=== PATIENT | female | born 1975 | race Caucasian/White ===

== ENCOUNTER 2023-05-24 08:46 | Emergency (ER) | payer MEDICAID, OTHER ==
[~2023-05-24] VITALS: Ht 170.2 cm; Wt 105.8 kg
[~2023-05-24 08:46] MED LIST: ALPR0.5T; DIVA250T4; LORA-205; QUET100T38
[2023-05-24 09:50] LABS: Basophils # (auto) 0.1 10 ^3/uL (0-0.2); Basophils % (auto) 0.7 % (0.0-2.0); Chloride 105 mmol/L (98-107); Eosinophils # (auto) 0.4 10 ^3/uL (0-0.8); Eosinophils % (auto) 2.7 % (0.0-7.0); Hematocrit 46.9 % (36.0-46.0); Lymphocytes # (auto) 3.1 10 ^3/uL (0.4-5.4); Lymphocytes % (auto) 20.1 % (10.0-50.0); Mean Corpuscular Hemoglobin 30.7 pg (28.0-32.0); Mean Corpuscular Hgb Conc. 34.2 g/dL (32.0-36.0); Mean Corpuscular Volume 89.8 fL (80.0-100.0); Monocytes # (auto) 0.9 10 ^3/uL (0-1.3); Monocytes % (auto) 5.9 % (0.0-12.0); Neutrophils % (auto) 70.6 % (37.0-80.0); Nucleated Red Blood Cells % 0.1 %; Potassium 4.2 mmol/L (3.5-5.1); Red Blood Cells 5.22 10^6/uL (4.0-5.20); Red Cell Distribution Width 13.7 % (11.8-14.3); Sodium 139 mmol/L (136-145); White Blood Cell 15.5 10^3/uL (4.4-10.8)
[2023-05-24 09:51] LABS: Anion Gap 10 (5-15); Carbon Dioxide 24 mmol/L (20-30)
[2023-05-24 09:52] LABS: Calcium 9.5 mg/dL (8.5-10.1)
[2023-05-24 09:56] LABS: Blood Urea Nitrogen 14 mg/dL (9-23); Glucose 223 mg/dL (74-106)
[2023-05-24 11:37] LABS: Alkaline Phosphatase 82 U/L (46-116)
[2023-05-24 11:39] LABS: Alanine Aminotransferase 30 U/L (7-40); Albumin 4.6 g/dL (3.2-4.8); Aspartate Aminotransferase 13 U/L (13-40); Bilirubin, Total 0.5 mg/dL (0.2-1.0); Total Protein 6.8 g/dL (5.7-8.2)
[2023-05-24] MEDS ORDERED: MECL1TAB42 PO (14:27)
[2023-05-24] MEDS ORDERED: ZOFR4T PO (14:27)
[2023-05-24 14:30] VITALS: BP 168/95; PULSE 75; RESP 14; TEMP 97.4; O2SAT 94
[2023-05-24] MEDS ORDERED: MECLIZINE HCL 25 MG TAB PO ONE (14:45)
[2023-05-24] MEDS ORDERED: ONDANSETRON ODT 4 MG TAB PO ONE (14:45)
== END 2023-05-24 14:55 | disposition home or self-care (01) ==
LOC: ER 08:46
DX: R42 Dizziness and giddiness (principal); R10.2 Pelvic and perineal pain; E11.9 Type 2 diabetes mellitus without complications; I10 Essential (primary) hypertension; F12.10 Cannabis abuse, uncomplicated; Z90.49 Acquired absence of other specified parts of digestive tract
CPT/HCPCS: 36415; 70450; 80053; 84484; 84702; 85025; 93005; 99284; J8597; Q0162

== ENCOUNTER 2024-06-03 10:06 | Inpatient (IN) | payer MEDICAID ==
[~2024-06-03] VITALS: Ht 170.2 cm; Wt 115.5 kg
[~2024-06-03 10:06] MED LIST changes: +DIVA-139; -DIVA250T4; +MECL1TAB42 PO; +ZOFR4T PO
--- NOTE | 2024-06-03 10:43 | ED.PDOC ---
History of Present Illness HPI Comments 48 year old female presents to the ED with chief complaint of flu-like illness and chest pain. Patient reports that she has been experiencing chest pain with associated tachycardia since last night along with left sided facial pain and swelling, tailbone pain, fever, constipation, and abdominal pressure for the past 5 days. Patient relays that 5 days ago she had fallen onto her face and when getting up fell on her bottom, believing she may have injured her tailbone and teeth. Patient states she took some antibiotics she was prescribed before due to noticing left sided facial swelling and pain, relieving it slightly, but is still present. Patient notes she had a recent appointment with her pain management doctor 5 days ago where she was noted to have high blood pressure and a rapid heart rate. Patient denies any N/V/D, cough, SOB, dizziness, chills, or weakness. Chief Complaint: Chest Pain Time Seen by MD: 10:36 Primary Care Provider: JANAE Velazquez Notes: Nurses Notes, Medications, Allergies Allergies: Coded Allergies: NO KNOWN ALLERGIES (Unverified , 05/07/10) Home Meds Active Scripts Ondansetron Odt 4MG Tab (ZOFRAN PO) 4 Mg Tb, 4 MG PO TID for 7 Days, #21 TAB ODT TAB-DISSOLVE IN MOUTH, THEN SWALLOW Prov:CAM CANELA MD 05/24/23 Meclizine HCl (Meclizine 25) 25 Mg Tab, 25 MG PO TID for 7 Days, #21 TAB Prov:CAM CANELA MD 05/24/23 Reported Medications Divalproex Sodium (Depakote) 250 Mg Tab 03/15/11 Alprazolam (Xanax) 0.5 Mg Tb 03/15/11 Lorazepam (Ativan) 1 Mg Tab 03/15/11 Quetiapine Fumerate (Seroquel) 100 Mg Tab 03/15/11 Information Source: Patient Mode of Arrival: Ambulatory Severity: Moderate Timing: Days Duration: Since onset Prehospital treatment: None Past Medical History PAST MEDICAL HISTORY: Anxiety, DM, HTN, Thyroid Past Medical History (Other): Chronic back pain Surgical History: Cholecystectomy 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 History Family History Family History: Reviewed,noncontributory to illness Social History Smoker: Non-Smoker Alcohol: Occasionally Drugs: Marijuana Lives In: Home Constitutional: reports: fever; denies: chills, diaphoresis, fatigue, malaise, sweats, weakness, others EENTM: reports: others (Left facial pain and swelling); denies: blurred vision, double vision, ear bleeding, ear discharge, ear drainage, ear pain, ear ringing, eye pain, eye redness, hearing loss, mouth pain, mouth swelling, nasal discharge, nose bleeding, nose congestion, nose pain, photophobia, tearing, throat pain, throat swelling, voice changes Respiratory: denies: cough, hemoptysis, orthopnea, SOB at rest, shortness of breath, SOB with excertion, stridor, wheezing, others Cardiovascular: reports: chest pain; denies: dizzy spells, diaphoresis, Dyspnea on exertion, edema, irregular heart beat, left arm pain, lightheadedness, palpitations, PND, syncope, others Gastrointestinal: reports: abdominal pain, constipated; denies: abdomen distended, blood streaked bowels, diarrhea, dysphagia, difficulty swallowing, hematemesis, melena, nausea, poor appetite, poor fluid intake, rectal bleeding, rectal pain, vomiting, others Genitourinary: denies: abnormal vagina bleeding, burning, dyspareunia, dysuria, flank pain, frequency, hematuria, incontinence, pain, , vagina discharge, urgency, others Neurological: reports: headache; denies: dizziness, fainting, left sided numbness, left sided weakness, numbness, paresthesia, pre-existing deficit, right sided numbness, right sided weakness, seizure, speech problems, tingling, tremors, weakness, others Musculoskeletal: reports: back pain; denies: gout, joint pain, joint swelling, muscle pain, muscle stiffness, neck pain, others Integumetry: denies: bruises, change in color, change in hair/nails, dryness, laceration, lesions, lumps, rash, wounds, others Allergic/Immunocompromised: denies: Difficulty Healing, Frequent Infections, Hives, Itching, others Hematologic/Lymphatic: denies: anemia, blood clots, easy bleeding, easy bruising, swollen glands, others Endocrine: denies: excessive hunger, excessive sweating, excessive thirst, excessive urination, flushing, intolerance to cold, intolerance to heat, unexplained weight gain, unexplained weight loss, others Psychiatric: denies: anxiety, bipolar disorder, depression, hopeless, panic disorder, schizophrenia, sleepless, suicidal, others All Other Systems: Reviewed and Negative Physical Exam General Appearance: Mild Distress HEENT: Other (Upper and lower frontal tooth tenderness. No subluxation. Minimal left facial soft tissue tenderness and swelling.) Neck: Full Range of Motion, Non-Tender, Normal Inspection Respiratory: Lungs Clear, No Accessory Muscle Use, No Respiratory Distress, Normal Breath Sounds Cardiovascular: No Edema, No JVD, Tachycardia Breast Exam: Deferred Gastrointestinal: Non Tender, Soft Genitalia: Deferred Pelvic: Deferred Rectal: Deferred Extremities: Normal inspection, Normal range of motion, Non-tender, No pedal edema Neurologic: Alert (Oriented x4), Normal Affect, Normal Mood, Other (Ambulatory without difficulty. No gross focal deficit.) Cerebellar Function: NOT DONE Reflexes: NOT DONE Skin: Dry, Normal Color, Warm Lymphatic: NOT DONE Was a procedure done? Was a procedure done?: No EKG EKG : Comments Sinus tach, rate 109, normal intervals, normal axis, normal QRS, no ST/T changes. Differential Dx Considerations may include: Facial fracture/contusion, dental infection, arrhythmia, NC, other infectious process such as UTI or sepsis, coccygeal contusion/fracture, among others X-Ray, Labs, Meds, VS Vital Signs Date Time Temp Pulse Resp B/P (MAP) Pulse Ox O2 Delivery O2 Flow Rate FiO2 06/03/24 17:46 98.6 92 20 149/86 (107) 97 98.6 06/03/24 12:17 104 20 159/84 (109) 95 06/03/24 10:49 121 06/03/24 10:49 98.6 121 20 145/76 (99) 96 98.6 06/03/24 10:18 109 06/03/24 10:12 98.4 122 18 153/109 (124) 94 Lab Test 06/03/24 13:21 06/03/24 11:09 06/03/24 10:36 06/03/24 10:22 Range/Units Troponin I High Sensitivity < 3 L < 3 L < 3 L </=34 ng/L Sodium Level 128 L 129 L 136-145 mmol/L Potassium Level 3.9 3.9 3.5-5.1 mmol/L Chloride Level 96 L 96 L 98-107 mmol/L Carbon Dioxide Level 21 23 20-31 mmol/L Anion Gap 11 10 5-15 Blood Urea Nitrogen 11 13 9-23 mg/dL Creatinine 0.82 0.79 0.550-1.02 mg/dL Glomerular Filtration Rate Calc 88 92 >90 mL/min BUN/Creatinine Ratio 13.4 16.5 10.0-20.0 Serum Glucose 393 H 393 H 74-106 mg/dL Lactic Acid Level 2.0 0.4-2.0 mmol/L Calcium Level 9.3 9.3 8.7-10.4 mg/dL B-Type Natriuretic Peptide 29.80 0-100 pg/mL Beta HCG, Quantitative 3.6 1.5-4.2 mIU/mL Urine Color Light-yellow Yellow Urine Clarity Turbid H Clear Urine pH 5.5 5.0-9.0 Urine Specific [place] 1.023 1.001-1.035 Urine Protein Trace H Negative Urine Ketones 3+ H Negative Urine Blood 2+ H Negative /uL Urine Nitrite Negative Negative Urine Bilirubin Negative Negative Urine Urobilinogen Normal Negative mg/dL Urine Leukocyte Esterase 3+ Negative /uL Urine RBC 4 0 - 4 /hpf Urine WBC 272 0 - 5 /hpf Urine Squamous Epithelial Cells Few <5 /hpf Urine Bacteria None seen None Seen /hpf Urine Glucose 4+ H Normal mg/dL Urine Opiates Screen Neg NEGATIVE Urine Fentanyl Screen Neg NEGATIVE Urine Barbiturates Screen Neg NEGATIVE Urine Phencyclidine Screen Neg NEGATIVE Urine Amphetamines Screen Neg NEGATIVE Urine Benzodiazepines Screen Neg NEGATIVE Urine Cocaine Screen Neg NEGATIVE Urine Cannabinoids Screen Pos NEGATIVE White Blood Count 17.9 H 4.4-10.8 10^3/uL Red Blood Count 4.84 4.0-5.20 10^6/uL Hemoglobin 14.7 12.2-16.2 g/dL Hematocrit 43.3 36.0-46.0 % Mean Corpuscular Volume 89.5 80.0-100.0 fL Mean Corpuscular Hemoglobin 30.4 28.0-32.0 pg Mean Corpuscular Hemoglobin Concent 33.9 32.0-36.0 g/dL Red Cell Distribution Width 12.2 11.8-14.3 % Platelet Count 252 140-450 10^3/uL Mean Platelet Volume 8.7 6.9-10.8 fL Neutrophils (%) (Auto) 85.8 H 37.0-80.0 % Lymphocytes (%) (Auto) 6.3 L 10.0-50.0 % Monocytes (%) (Auto) 6.6 0.0-12.0 % Eosinophils (%) (Auto) 0.8 0.0-7.0 % Basophils (%) (Auto) 0.5 0.0-2.0 % Neutrophils # (Auto) 15.3 H 1.6-8.6 10 ^3/uL Lymphocytes # (Auto) 1.1 0.4-5.4 10 ^3/uL Monocytes # (Auto) 1.2 0-1.3 10 ^3/uL Eosinophils # (Auto) 0.1 0-0.8 10 ^3/uL Basophils # (Auto) 0.1 0-0.2 10 ^3/uL Nucleated Red Blood Cells 0.0 % Total Bilirubin 0.5 0.2-1.0 mg/dL Aspartate Amino Transferase (AST) 82 H 13-40 U/L Alanine Aminotransferase (ALT) 112 H 7-40 U/L Alkaline Phosphatase 229 H 46-116 U/L Total Protein 6.7 5.7-8.2 g/dL Albumin 3.8 3.2-4.8 g/dL Current Medications Medications (Trade) Dose Ordered Sig/[place] Route Start Time Stop Time Status Last Admin Ceftriaxone Sodium 50 ml @ 100 mls/hr ONCE ONCE IV 06/03/24 10:45 06/03/24 11:14 DC 06/03/24 11:08 Ketorolac Tromethamine (Toradol Injection) 30 mg ONCE ONCE IV 06/03/24 10:45 06/03/24 10:57 DC 06/03/24 11:08 Acetaminophen/ Hydrocodone Bitart (Nenzel 10/325MG Tab) 2 tab ONCE ONCE PO 06/03/24 10:45 06/03/24 10:57 DC 06/03/24 11:08 Sodium Chloride 2,000 ml @ 1,000 mls/hr Q2H ONCE IV 06/03/24 10:45 06/03/24 12:44 DC 06/03/24 10:58 PROCEDURE(s): CXRP - CHEST PORTABLE REASON: CP ORDER NUMBER(s): [id number], ACCESSION NUMBER(s): [id number] CHEST RADIOGRAPH Indication: CP Technique: Single frontal view of the chest was obtained COMPARISON: None FINDINGS: Lines and Tubes: None Lungs: Clear Pleura: No effusion. No pneumothorax. Cardiomediastinal contours: Unremarkable Bones: Unremarkable IMPRESSION: No acute disease. Sacrum/Coccyx XR : IMPRESSION: Cortical irregularity at the mid to distal coccyx may represent a minimally displaced fracture versus normal variation. This is seen on lateral view only. Recommend correlation with point tenderness. X-Ray, Labs, Meds, VS Comment 48-year-old female with a history of hypertension, diabetes, thyroid disease, chronic pain complaining of facial pain, tailbone pain and palpitations status post fall Vitals remarkable for heart rate 122, BP 153/109 Exam remarkable for frontal upper and lower tooth tenderness without subluxation, left facial soft tissue tenderness and swelling, coccygeal area tenderness, tachycardia EKG sinus tach, no ST/T changes Chest x-ray unremarkable CT maxillofacial unremarkable Sacral/Coccyx x-rays IMPRESSION: Cortical irregularity at the mid to distal coccyx may represent a minimally displaced fracture versus normal variation. This is seen on lateral view only. Recommend correlation with point tenderness. CBC remarkable for WBC 17.9 with differential showing left shift. BMP remarkable for sodium 128, chloride 96, glucose 393. No other lab abnormalities of acute significance UA abnormal consistent with UTI Patient treated with the following in the ED: 1 L 0.9 normal saline IV bolus, Nenzel 10/325 mg 2 tabs p.o., Toradol 30 mg IV, Rocephin 1 g IV On re-evaluation, patient states her pain has improved. Tachycardia is improving, with heart rate now 110. Other vitals stable. Plan is to admit the patient for IV antibiotics, IV hydration, glucose control, pain control and possible Cardiology evaluation for the chest pain. Case discussed with Dawna Prabhakar NP, who will admit the patient. Time of 1ST Reevaluation: 11:36 Reevaluation 1ST: Unchanged Patient Education/Counseling: Diagnosis, Treatment Family Education/Counseling: No Family Present Additional Information I reviewed the following notes from patient's past medical encounters: 05/24/23 for dizziness The following tests were ordered, and results were reviewed by me: Chest XR, Sacrum/Coccyx XR, EKG, Troponin, CBC, CMP, BNP, UA, Beta HCG Quant, Lactic Acid, Blood Culture, Drug Screen I reviewed and agreed with the following test results read by other providers: Chest XR, Sacrum/Coccyx XR I discussed treatment and results with medical personnel. Departure 1 Departure Time of Disposition: 11:56 Impression: Primary Impression: UTI (urinary tract infection) Qualified Codes: N39.0 - Urinary tract infection, site not specified Additional Impressions: Tachycardia Electrolyte imbalance Hyperglycemia Fractured coccyx Qualified Codes: S32.2XXA - Fracture of coccyx, initial encounter for closed fracture Facial contusion Qualified Codes: S00.83XA - Contusion of other part of head, initial encounter Acute chest pain Disposition: ADMITTED INPATIENT Admit to: Med Surg Condition: Fair Critical Care Note Critical Care Time?: No Stability Stability form required: No Heart Score Heart Score: Heart Score Response (Comments) Value History Slightly Suspicious 0 EKG Normal 0 Age 45-64 1 Risk Factors >3 or Hx ASHD 2 Troponin Normal limit 0 Total 3 I personally scribed for ESTUARDO GIPSON MD ([email or web address]) on 06/03/24 at 10:43. Electronically submitted by Alvino Murray ([email or web address]). I personally scribed for ESTUARDO GIPSON MD ([email or web address]) on 06/03/24 at 13:08. Electronically submitted by Alvino Murray ([email or web address]). ESTUARDO GIPSON MD Jun 03, 2024 10:43
[2024-06-03 10:52] LABS: Urine Bacteria None Seen /hpf (None Seen)
[2024-06-03] MEDS: SODIUM CHLORIDE 0.9% 2,000 ML IV ONE (10:58)
--- NOTE | 2024-06-03 11:00 | DVH ---
CHEST RADIOGRAPH Indication: CP Technique: Single frontal view of the chest was obtained COMPARISON: None FINDINGS: Lines and Tubes: None Lungs: Clear Pleura: No effusion. No pneumothorax. Cardiomediastinal contours: Unremarkable Bones: Unremarkable IMPRESSION: No acute disease.
[2024-06-03] MEDS: HYDROcodone-ACET 10/325MG TAB PO ONE (11:08)
[2024-06-03] MEDS: KETOROLAC TROMETH 30 MG/ML 1ML VIAL IV ONE (11:08)
[2024-06-03] MEDS: cefTRIAXone 1GM/50ML D5W 50 ML IV ONE (11:08)
[2024-06-03 11:14] LABS: Albumin 3.8 g/dL (3.2-4.8); Anion Gap 10 (5-15); BUN/Creatinine Ratio 16.5 (10.0-20.0); Bilirubin, Total 0.5 mg/dL (0.2-1.0); Blood Urea Nitrogen 13 mg/dL (9-23); Calcium 9.3 mg/dL (8.7-10.4); Carbon Dioxide 23 mmol/L (20-31); Potassium 3.9 mmol/L (3.5-5.1); Total Protein 6.7 g/dL (5.7-8.2)
[2024-06-03 11:22] LABS: Alanine Aminotransferase 112 U/L (7-40); Alkaline Phosphatase 229 U/L (46-116); Aspartate Aminotransferase 82 U/L (13-40); Chloride 96 mmol/L (98-107); Glucose 393 mg/dL (74-106); Sodium 129 mmol/L (136-145)
[2024-06-03 11:23] LABS: Urine Blood 2+ /uL (Negative); Urine Clarity Turbid (Clear); Urine Color Light-Yellow (Yellow); Urine Protein, UAD TRACE (Negative); Urine Specific Gravity 1.023 (1.001-1.035); Urine Squamous Epithelial Cell FEW /hpf (<5); Urine Urobilinogen Normal (Negative); Urine WBC 272 /hpf (0 - 5); Urine pH 5.5 (5.0-9.0)
[2024-06-03 11:28] LABS: Cannabinoid Screen, Urine Pos (NEGATIVE); Opiate Scree,Urine Neg (NEGATIVE)
[2024-06-03 11:37] LABS: Barbiturate Scree,Urine Neg (NEGATIVE); Benzodiazephine Screen, Urine Neg (NEGATIVE); Cocaine Screen, Urine Neg (NEGATIVE); Phencyclidine Screen, Urine Neg (NEGATIVE)
[2024-06-03 11:50] LABS: Basophils # (auto) 0.1 10 ^3/uL (0-0.2); Basophils % (auto) 0.5 % (0.0-2.0); Eosinophils # (auto) 0.1 10 ^3/uL (0-0.8); Eosinophils % (auto) 0.8 % (0.0-7.0); Hematocrit 43.3 % (36.0-46.0); Hemoglobin 14.7 g/dL (12.2-16.2); Lymphocytes # (auto) 1.1 10 ^3/uL (0.4-5.4); Lymphocytes % (auto) 6.3 % (10.0-50.0); Mean Corpuscular Hemoglobin 30.4 pg (28.0-32.0); Mean Corpuscular Hgb Conc. 33.9 g/dL (32.0-36.0); Mean Corpuscular Volume 89.5 fL (80.0-100.0); Monocytes # (auto) 1.2 10 ^3/uL (0-1.3); Monocytes % (auto) 6.6 % (0.0-12.0); Neutrophils # (auto) 15.3 10 ^3/uL (1.6-8.6); Neutrophils % (auto) 85.8 % (37.0-80.0); Platelet Count (auto) 252 10^3/uL (140-450); Red Blood Cells 4.84 10^6/uL (4.0-5.20); Red Cell Distribution Width 12.2 % (11.8-14.3); White Blood Cell 17.9 10^3/uL (4.4-10.8)
[2024-06-03 12:15] LABS: Potassium 3.9 mmol/L (3.5-5.1)
[2024-06-03 12:16] LABS: Anion Gap 11 (5-15); Carbon Dioxide 21 mmol/L (20-31)
[2024-06-03 12:17] LABS: Calcium 9.3 mg/dL (8.7-10.4)
[2024-06-03 12:19] LABS: Chloride 96 mmol/L (98-107); Sodium 128 mmol/L (136-145)
[2024-06-03 12:22] LABS: BUN/Creatinine Ratio 13.4 (10.0-20.0); Blood Urea Nitrogen 11 mg/dL (9-23)
[2024-06-03 12:23] LABS: Amphetamine Screen, Urine Neg (NEGATIVE)
[2024-06-03 12:23] LABS: Glucose 393 mg/dL (74-106)
--- NOTE | 2024-06-03 12:58 | DVH ---
INDICATION: tailbone pain s/p fall TECHNIQUE: 3 views of the sacrum/coccyx were obtained. COMPARISON: None Findings/ IMPRESSION: Cortical irregularity at the mid to distal coccyx may represent a minimally displaced fracture versus normal variation. This is seen on lateral view only. Recommend correlation with point tenderness.
--- NOTE | 2024-06-03 13:03 | DVH ---
HISTORY: facial, frontal tooth/maxillary/mandibular pain s/p fall TECHNIQUE: Nonenhanced axial images through the facial bones with coronal and sagittal MPR. Radiation Dose Information: CT Dose: CTDI volume is 66.97 mGy. Dose-length product is 1296.66 mGy*cm COMPARISON: None FINDINGS: Mandible: Unremarkable Maxilla: Unremarkable Zygomatic arches: Unremarkable Nasal bone: Unremarkable Orbits: Unremarkable Sinuses: Mucous retention cyst or polyp in the left maxillary sinus. Facial swelling: None IMPRESSION: 1. No acute facial fractures. Radiation optimization: All CT scans at this facility use at least one of these dose optimization jeff hniques: automated exposure control mA and/or kV adjustment per patient size (includes targeted exam s where dose is matched to clinical indication) or iterative reconstruction.
[2024-06-03] MEDS ORDERED: DEXTROSE (50%) 50ML SYRG IV PRN (20:00)
[2024-06-03] MEDS ORDERED: MELATONIN 5 MG TAB PO PRN (20:00)
[2024-06-03] MEDS ORDERED: SENNA 8.6 MG TAB PO PRN (20:30)
--- NOTE | 2024-06-03 21:14 | DVH ---
Exam: CT PELVIS WO CONTRAST History: coccyx pain s/p mechanical fall Comparison Study: None available at time of dictation. Technique: Multidetector spiral CT of the pelvis was performed from iliac crests to pubic symphysis. 100 cc of intravenous contrast was administered during this examination. Portal venous imaging was obtained. Axial, coronal and sagittal multiplanar reformats were performed by the technologist on a separate workstation. Radiation Dose : CT Dose: CTDI volume is 33 mGy. Dose-length product is 1141 mGy*cm Findings: Visualized bowel: Small bowel and colon are normal in caliber and distribution. The appendix is not visualized; however, no secondary findings of acute appendicitis identified. Ascites: Absent Lymphadenopathy: No pelvic or mesenteric lymphadenopathy. Pelvis Wall and Mesentery: Unremarkable. Vasculature: The visualized abdominal aorta is normal in size and caliber. Abdominal and pelvic vess els demonstrate normal enhancement. Pelvic Organs: Unremarkable Musculoskeletal: No aggressive focal bony lesions, acute fractures or dislocation. Bladder: Unremarkable IMPRESSION: No acute pelvic finding. END IMPRESSION:
[2024-06-03] MEDS: InsuLIN REG 1unit/0.01ml Soln (100units/ml) SC SCH (22:00)
[2024-06-03] MEDS: HYDROcodone-ACET 10/325MG TAB PO PRN (22:20)
[2024-06-03] MEDS: ACCU-CHEK COMFORT CURVE STRIP VI SCH (22:28)
[2024-06-04] VITALS (9 sets, daily range): BP systolic 115–155; BP diastolic 62–85; PULSE 86–114; RESP 16–20; TEMP 97.6–101.1; O2SAT 93–95
--- NOTE | 2024-06-04 00:15 | DVHHP2 ---
Admitting Diagnosis: CP, palpitations, UTI History of Present Illness History Source: Patient Exam Limitations: No limitations HPI Mrs. Sandee Saba is a 48 year old female presents with a chief complaint of flu-like illness and chest pain. Patient reports that she has been experiencing chest pain with associated palpitations since last night along with left sided facial pain and swelling, tailbone pain, fever, constipation, and abdominal pressure for the past 5 days. Patient relays that 5 days ago she had fallen onto her face and when getting up fell on her bottom, believing she may have injured her tailbone. Patient reports chest tightness with palpitations denies dyspnea, nausea, vomiting, fevers, diarrhea. Patient endorses she has not had a bowel movement x 5 days due to tailbone pain. Denies abdominal pain. Patient admitted for further evaluation. Home Meds Reported Medications Budesonide-Formoterol Fumarate (Budesonide/Formoterol Fum 160-4.5 Mcg/Act) 1 Aer Aer, 1 AER IN, AER 06/04/24 Lisinopril (Lisinopril) 10 Mg Tab, 10 MG PO DAILY for 30 Days, MG 06/04/24 Loratadine (Claritin) 10 Mg Tab, 10 MG PO, TAB 06/04/24 Meclizine Hcl (Meclizine Hcl) 25 Mg Tab, 25 MG PO BIDP for 30 Days, MG 06/04/24 Aspirin (Aspir-Low) 81 Mg Tab, 81 MG PO DAILY for 30 Days, MG 06/04/24 Ibuprofen Micronized (Ibuprofen) 800 Mg Tab, 800 MG PO, TAB 06/04/24 Ondansetron Odt 4MG Tab (ZOFRAN PO) 4 Mg Tb, 4 MG PO, TAB ODT TAB-DISSOLVE IN MOUTH, THEN SWALLOW 06/04/24 Glipizide (Glipizide) 5 Mg Tab, 5 MG PO for 30 Days, MG 06/04/24 Levothyroxine Sodium (Levothyroxine Sodium) 50 Mcg Tab, 50 MCG PO QAM for 30 Days, MCG 06/04/24 Metformin Hydrochloride (Metformin Hcl) 850 Mg Tab, 850 MG PO BID, TAB 06/04/24 Discontinued Reported Medications Divalproex Sodium (Depakote) 250 Mg Tab 03/15/11 Alprazolam (Xanax) 0.5 Mg Tb 03/15/11 Lorazepam (Ativan) 1 Mg Tab 03/15/11 Quetiapine Fumerate (Seroquel) 100 Mg Tab 03/15/11 Past Medical History Cardiac: HTN Pulmonary: No pertinent Hx Central Nervous System: No pertinent Hx GI: No pertinent Hx Hemotology/Oncology: No pertinent Hx Hepatobiliary: No pertinent Hx Psychiatric: Anxiety Musculoskeletal: No pertinent Hx Rheumotologic: No pertinent Hx Infectious Disease: No peritnent Hx ENT: No pertinent Hx Renal/: No pertinent Hx Endocrine: Hypothyroidism, NIDDM Dermatology: No pertinent Hx Smoker: No Hx (Negative) Alocohol: None Drugs: Marijuana Domestic Violence: Neg Review of Systems Constitutional: No symptom reported Ears, Nose, & Throat: No symptom reported Eyes: No symptom reported Pulmonary/Respiratory: No symptom reported Cardiovascular: Chest Pain, Palpitations Gastrointestinal: No symptom reported Genitourinary: No symptom reported Musculoskeletal: Other (tailbone pain) Skin: No symptom reported Psychiatric: No symptom reported Endocrine: No symptom reported Hemotologic/Lymphatic: No symptom reported H&P Exam Vital Signs Vital Signs Date Time Temp Pulse Resp B/P (MAP) Pulse Ox O2 Delivery O2 Flow Rate FiO2 06/03/24 20:12 100.0 117 22 155/103 (120) 97 100.0 General Appeara: Well developed, Well nourished, Normal Appearance Head Exam: Normal inspection Neck Exam: Normal inspection, Non-tender, Normal alignment Eye Exam: bilateral eye Normal inspection, bilateral eye PERRL, bilateral eye EOMI Ear Exam: bilateral ear Auricle normal Nasal Exam: Normal inspection Mouth: Normal Inspection Pulmonary/Respiratory: Normal inspection, Normal breath sounds, Chest non- tender, Lungs clear Cardiovascular/Chest: Normal inspection, Regular rate, Normal Rhythm Peripheral Pulses: 2+ dorsalis pedis (R), 2+ dorsalis pedis (L), 2+ Radial (R), 2+ Radial (L) Abdominal Exam: Normal bowel sounds, Soft, No tenderness Pelvic Exam: Other (tailbone tenderness) Tendon/ Neuro: Normal sensation, Normal motor function OVEN DAUBER Exam: Normal hearing, Normal speech, PERRL Neuro/Mental St: Alert, Oriented Appearance: Appropriate appearance, Appropriate insight Eye contact/ Speech: Cooperative, Good eye contact, Normal speech Thoughts/Psych: Normal thought pattern Skin Exam: Normal inspection, Normal color, Warm/dry Labs/Xrays Labs Test 06/03/24 23:36 06/03/24 22:34 06/03/24 11:09 06/03/24 10:36 Range/Units POC Glucose 387 H 70-106 mg/dl Troponin I High Sensitivity < 3 L </=34 ng/L Sodium Level 128 L 136-145 mmol/L Potassium Level 3.9 3.5-5.1 mmol/L Chloride Level 96 L 98-107 mmol/L Carbon Dioxide Level 21 20-31 mmol/L Anion Gap 11 5-15 Blood Urea Nitrogen 11 9-23 mg/dL Creatinine 0.82 0.550-1.02 mg/dL Glomerular Filtration Rate Calc 88 >90 mL/min BUN/Creatinine Ratio 13.4 10.0-20.0 Serum Glucose 393 H 74-106 mg/dL Lactic Acid Level 2.0 0.4-2.0 mmol/L Calcium Level 9.3 8.7-10.4 mg/dL B-Type Natriuretic Peptide 29.80 0-100 pg/mL Beta HCG, Quantitative 3.6 1.5-4.2 mIU/mL Urine Color Light-yellow Yellow Urine Clarity Turbid H Clear Urine pH 5.5 5.0-9.0 Urine Specific [place] 1.023 1.001-1.035 Urine Protein Trace H Negative Urine Ketones 3+ H Negative Urine Blood 2+ H Negative /uL Urine Nitrite Negative Negative Urine Bilirubin Negative Negative Urine Urobilinogen Normal Negative mg/dL Urine Leukocyte Esterase 3+ Negative /uL Urine RBC 4 0 - 4 /hpf Urine WBC 272 0 - 5 /hpf Urine Squamous Epithelial Cells Few <5 /hpf Urine Bacteria None seen None Seen /hpf Urine Glucose 4+ H Normal mg/dL Urine Opiates Screen Neg NEGATIVE Urine Fentanyl Screen Neg NEGATIVE Urine Barbiturates Screen Neg NEGATIVE Urine Phencyclidine Screen Neg NEGATIVE Urine Amphetamines Screen Neg NEGATIVE Urine Benzodiazepines Screen Neg NEGATIVE Urine Cocaine Screen Neg NEGATIVE Urine Cannabinoids Screen Pos NEGATIVE Test 06/03/24 10:22 Range/Units White Blood Count 17.9 H 4.4-10.8 10^3/uL Red Blood Count 4.84 4.0-5.20 10^6/uL Hemoglobin 14.7 12.2-16.2 g/dL Hematocrit 43.3 36.0-46.0 % Mean Corpuscular Volume 89.5 80.0-100.0 fL Mean Corpuscular Hemoglobin 30.4 28.0-32.0 pg Mean Corpuscular Hemoglobin Concent 33.9 32.0-36.0 g/dL Red Cell Distribution Width 12.2 11.8-14.3 % Platelet Count 252 140-450 10^3/uL Mean Platelet Volume 8.7 6.9-10.8 fL Neutrophils (%) (Auto) 85.8 H 37.0-80.0 % Lymphocytes (%) (Auto) 6.3 L 10.0-50.0 % Monocytes (%) (Auto) 6.6 0.0-12.0 % Eosinophils (%) (Auto) 0.8 0.0-7.0 % Basophils (%) (Auto) 0.5 0.0-2.0 % Neutrophils # (Auto) 15.3 H 1.6-8.6 10 ^3/uL Lymphocytes # (Auto) 1.1 0.4-5.4 10 ^3/uL Monocytes # (Auto) 1.2 0-1.3 10 ^3/uL Eosinophils # (Auto) 0.1 0-0.8 10 ^3/uL Basophils # (Auto) 0.1 0-0.2 10 ^3/uL Nucleated Red Blood Cells 0.0 % Total Bilirubin 0.5 0.2-1.0 mg/dL Aspartate Amino Transferase (AST) 82 H 13-40 U/L Alanine Aminotransferase (ALT) 112 H 7-40 U/L Alkaline Phosphatase 229 H 46-116 U/L Total Protein 6.7 5.7-8.2 g/dL Albumin 3.8 3.2-4.8 g/dL Assessment/Plan Problem List: (1) Acute chest pain (2) Palpitations (3) UTI (urinary tract infection) (4) Electrolyte imbalance Plan 48 yo female with known history of DM, hypertension, anxiety, thyroid disease, and chronic back pain presents with chest pain, palpitations, facial and coccyx pain s/p mechanical fall x 5 days ago. Patient found to have 1. Chest pain 2. Palpitations 3. urinary tract infection 4. Leukocytosis 5. Hyponatremia 6. DM with hyperglycemia Plan Admit telemetry unit Cardiology consultation, 2D echocardiogram, serial troponin levels, ASA IV fluids GI ppx Pepcid DVT ppx Lovenox IV antibiotics Ceftriaxone Urine culture Blood glucose monitoring ac & hs coverage with regular insulin sliding scale Discussed all above with patient who verbalizes agreement and understanding of care plan. All questions were answered. Discussed care plan with Kim KNUTSON. Discussed assessment and care plan with supervising MD. Plan discussed with: Patient, Other Code Visit Code Visit Total Time (mins): 45 Additional Comments Additional Comments Additional Comments 58-year-old female with a known history of diabetes mellitus type 2, hypertension, hypothyroidism, anxiety disorder, bipolar disorder initially presented to the hospital with chest pain palpitation, febrile episodes on and off for last few days, status post mechanical fall five days ago eventually fell onto her face and hold her coccyx as well presented to the hospital with chest pain palpitations found to have 1. Chest pain rule out [place] 2. Flu-like symptoms rule out COVID-19/influenza A and B 3. Urinary tract infection 4. Leukocytosis 5. Uncontrolled hyperglycemia in the setting of Diabetes mellitus type 2 6. Pseudohyponatremia secondary to hyperglycemia 7. Anxiety/bipolar disorder 8. Chronic marijuana use 9. Noncompliance -check influenza a and B, COVID-19, UA urine culture, IV antibiotics -check hemoglobin A1c. Marijuana cessation counseling. PEPE SALINAS Jun 04, 2024 00:15 FILOMENA FLOYD MD Jun 04, 2024 12:04
[2024-06-04] MEDS: SODIUM CHLORIDE 0.9% 1,000 ML IV ONE (02:30)
[2024-06-04] MEDS ORDERED: SENNA 8.6 MG TAB PO PRN (06:45)
[2024-06-04 06:49] LABS: Chloride 99 mmol/L (98-107); Potassium 3.7 mmol/L (3.5-5.1)
[2024-06-04 06:50] LABS: Anion Gap 12 (5-15); Carbon Dioxide 21 mmol/L (20-31)
[2024-06-04 06:55] LABS: Blood Urea Nitrogen 14 mg/dL (9-23)
[2024-06-04] MEDS: InsuLIN REG 1unit/0.01ml Soln (100units/ml) SC SCH ×2 (07:00→22:12)
[2024-06-04] MEDS: ACCU-CHEK COMFORT CURVE STRIP VI SCH (07:00)
[2024-06-04 07:07] LABS: Calcium 8.4 mg/dL (8.7-10.4); Glucose 331 mg/dL (74-106); Sodium 132 mmol/L (136-145)
[2024-06-04 07:17] LABS: Basophils # (auto) 0.1 10 ^3/uL (0-0.2); Basophils % (auto) 0.6 % (0.0-2.0); Eosinophils # (auto) 0.2 10 ^3/uL (0-0.8); Eosinophils % (auto) 1.1 % (0.0-7.0); Hematocrit 35.5 % (36.0-46.0); Hemoglobin 11.9 g/dL (12.2-16.2); Lymphocytes # (auto) 1.9 10 ^3/uL (0.4-5.4); Lymphocytes % (auto) 12.1 % (10.0-50.0); Mean Corpuscular Hemoglobin 30.1 pg (28.0-32.0); Mean Corpuscular Hgb Conc. 33.4 g/dL (32.0-36.0); Mean Corpuscular Volume 89.9 fL (80.0-100.0); Monocytes # (auto) 1.6 10 ^3/uL (0-1.3); Monocytes % (auto) 10.5 % (0.0-12.0); Neutrophils # (auto) 11.6 10 ^3/uL (1.6-8.6); Neutrophils % (auto) 75.7 % (37.0-80.0); Platelet Count (auto) 230 10^3/uL (140-450); Red Blood Cells 3.95 10^6/uL (4.0-5.20); Red Cell Distribution Width 12.6 % (11.8-14.3); White Blood Cell 15.4 10^3/uL (4.4-10.8)
[2024-06-04] MEDS ORDERED: METF-371 PO (09:18)
[2024-06-04] MEDS ORDERED: LEVO50TA7 PO (09:19)
[2024-06-04] MEDS ORDERED: MECL-90 PO (09:28)
[2024-06-04] MEDS ORDERED: GLIP5TAB21 PO (09:28)
[2024-06-04] MEDS ORDERED: LISI10TA34 PO (09:28)
[2024-06-04] MEDS ORDERED: ASPI-543 PO (09:28)
[2024-06-04] MEDS ORDERED: IBUP-1455 PO (09:28)
[2024-06-04] MEDS ORDERED: LORA-622 PO (09:28)
[2024-06-04] MEDS ORDERED: ZOFR4T PO (09:28)
[2024-06-04] MEDS ORDERED: BUDE1AER4 IN (09:28)
[2024-06-04] MEDS: DOCUSATE SOD 100 MG CAP PO SCH (10:00)
[2024-06-04 10:34] LABS: Hepatitis B Surface Antigen Negative (Negative); Hepatitis C Antibody Negative (Negative)
[2024-06-04] MEDS: ASPirin 81 mg TAB PO SCH (10:34)
[2024-06-04] MEDS: cefTRIAXone 2GM/50ML D5W 50 ML IV SCH (10:34)
[2024-06-04] MEDS: ENOXAPARIN SOD 40 MG/0.4 ML SYRINGE SC SCH (10:35)
[2024-06-04 12:51] LABS: Rapid Influenza A Negative (Negative); Rapid Influenza B Negative (Negative)
[2024-06-04 12:52] LABS: COVID19 ANTIGEN SOFIA FIA NEGATIVE (NEGATIVE)
[2024-06-04] MEDS: ACETAMINOPHEN 325 MG TAB PO PRN (16:50)
[2024-06-04] MEDS: NITROGLYCERIN 0.4 MG SL TAB SL PRN (17:48)
[2024-06-04] MEDS: MORPHINE SULFATE INJ 2 MG/ml SYRG IV PRN (17:49)
[2024-06-05] VITALS (8 sets, daily range): BP systolic 119–149; BP diastolic 67–87; PULSE 83–113; RESP 18–19; TEMP 97.8–100.2; O2SAT 92–95
[2024-06-05 06:30] LABS: Hematocrit 37.3 % (36.0-46.0); Hemoglobin 12.8 g/dL (12.2-16.2); Mean Corpuscular Hemoglobin 30.6 pg (28.0-32.0); Mean Corpuscular Hgb Conc. 34.3 g/dL (32.0-36.0); Mean Corpuscular Volume 89.2 fL (80.0-100.0); Platelet Count (auto) 243 10^3/uL (140-450); Red Blood Cells 4.18 10^6/uL (4.0-5.20); Red Cell Distribution Width 12.5 % (11.8-14.3)
[2024-06-05 06:36] LABS: Basophils % (manual) 0 (0.0-2.0); Blast Cells 0; Metamyelocytes % 0; Myelocytes % 0; Promyelocytes % 0; Reactive Lymphocytes 0
[2024-06-05 06:52] LABS: Band Neutrophils % (manual) 4; Eosinophils % (manual) 1 (0-7); Lymphocytes % (manual) 13 (10.0-50.0); Monocytes % (manual) 13 (0-12); Platelet Estimate Adequate; Potassium 3.6 mmol/L (3.5-5.1)
[2024-06-05 06:53] LABS: Anion Gap 9 (5-15); Carbon Dioxide 23 mmol/L (20-31)
[2024-06-05 06:54] LABS: Calcium 8.8 mg/dL (8.7-10.4); Chloride 97 mmol/L (98-107); Sodium 129 mmol/L (136-145)
[2024-06-05 06:58] LABS: BUN/Creatinine Ratio 11.4 (10.0-20.0)
[2024-06-05 07:02] LABS: Blood Urea Nitrogen 8 mg/dL (9-23); Glucose 329 mg/dL (74-106)
--- NOTE | 2024-06-05 09:56 | ECG ---
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
--- NOTE | 2024-06-05 14:46 | DVHPN2 ---
Subjective Patient is complaining of chest pain, patient does have known history of chronic back pain currently on narcotics at home. Reviewed: Care Plan Changes from previous H/P or p: No Changes Objective Vitals Vital Signs Date Time Temp Pulse Resp B/P (MAP) Pulse Ox O2 Delivery O2 Flow Rate FiO2 06/05/24 12:59 100.2 99 18 145/87 (106) 93 100.2 06/05/24 08:00 Room Air* 0 21 Intake/Output Intake and Output 06/05/24 07:00 Intake Total 3950 ml Balance 3950 ml Intake Oral 3950 ml # Voids 9 # Bowel Movements 2 Exam HEENT pupils are reactive Neck is supple CV is S1-S2 regular rate and rhythm Respiratory diminished breath sounds bases GI positive bowel sound Extremity no edema [employer] no motor deficit. Medications Current Medications Medications Dose Ordered Sig/[place] Route Start Time Stop Time Status Last Admin Dose Admin Nitroglycerin 0.4 mg Q5MINP PRN SL 06/03/24 20:00 06/04/24 17:48 0.4 MG Morphine Sulfate 2 mg Q30M PRN IV 06/03/24 20:00 06/04/24 22:03 2 MG Ondansetron HCl 4 mg Q6HPRN PRN IV 06/03/24 20:00 Aspirin 81 mg DAILY PO 06/04/24 10:00 06/05/24 09:57 81 MG Melatonin 5 mg ONCE@2200 PRN PO 06/03/24 20:00 Enoxaparin Sodium 40 mg DAILY SC 06/04/24 10:00 06/05/24 09:57 40 MG Acetaminophen 650 mg Q6HPRN PRN PO 06/03/24 20:00 06/05/24 10:16 650 MG Acetaminophen/ Hydrocodone Bitart 1 tab Q6HPRN PRN PO 06/03/24 20:00 06/05/24 12:20 1 TAB Ceftriaxone Sodium/Dextrose 50 ml @ 50 mls/hr DAILY IV 06/04/24 10:00 06/05/24 09:56 50 MLS/HR Docusate Sodium 200 mg BID PO 06/04/24 10:00 06/05/24 09:57 200 MG Sennosides 8.6 mg QHSP PRN PO 06/04/24 06:45 Diagnostic Test (Pha) 1 strip ACHS 06/04/24 07:00 06/05/24 12:13 1 STRIP Insulin Human Regular HS SC 06/04/24 22:00 06/04/24 22:12 8 UNITS Insulin Human Regular AC SC 06/04/24 07:00 06/05/24 12:13 15 UNITS Laboratory Results Laboratory Tests 06/05/24 05:40 Chemistry Test 06/05/24 05:40 Calcium Level 8.8 mg/dL (8.7-10.4) Urinalysis Test 06/03/24 10:36 Urine Color Light-yellow (Yellow) Urine Clarity Turbid (Clear) H Urine pH 5.5 (5.0-9.0) Urine Specific [place] 1.023 (1.001-1.035) Urine Protein Trace (Negative) H Urine Ketones 3+ (Negative) H Urine Blood 2+ /uL (Negative) H Urine Nitrite Negative (Negative) Urine Bilirubin Negative (Negative) Urine Urobilinogen Normal mg/dL (Negative) Urine Leukocyte Esterase 3+ /uL (Negative) Urine RBC 4 /hpf (0 - 4) Urine WBC 272 /hpf (0 - 5) Urine Squamous Epithelial Cells Few /hpf (<5) Urine Bacteria None seen /hpf (None Seen) Urine Glucose 4+ mg/dL (Normal) H Microbiology Microbiology Date/Time Source Procedure Growth Status 06/03/24 11:09 Blood Blood Culture - Preliminary NO GROWTH AFTER 48 HOURS OF INCUBATION. Resulted 06/03/24 10:36 Voided Urine Urine Culture - Preliminary Resulted Assessment/Plan Assessment/Plan 58-year-old female with a known history of diabetes mellitus type 2, hypertension, hypothyroidism, anxiety disorder, bipolar disorder initially presented to the hospital with chest pain palpitation, febrile episodes on and off for last few days, status post mechanical fall five days ago eventually fell onto her face and hold her coccyx as well presented to the hospital with chest pain palpitations found to have 1. Chest pain rule out [place] 2. Flu-like symptoms ruled out COVID-19/influenza A and B 3. Urinary tract infection 4. Leukocytosis 5. Uncontrolled hyperglycemia in the setting of Diabetes mellitus type 2 6. Pseudohyponatremia secondary to hyperglycemia 7. Anxiety/bipolar disorder 8. Chronic marijuana use 9. Noncompliance 10. Chronic back pain and narcotic dependency -continue antibiotics, follow up urine culture, pain meds Discharge plan. Plan discussed with: Patient, Other Date of Service: Jun 05, 2024 Billing Provider: FILOMENA FLOYD MD Common Visit Codes: NOT BILLABLE FILOMENA FLOYD MD Jun 05, 2024 14:46
[2024-06-05] MEDS: MORPHINE SULFATE INJ 2 MG/ml SYRG IV ONE (15:59)
[2024-06-05] MEDS: ONDANSETRON HCL 4 MG/2 ML VIAL IV PRN (17:28)
[2024-06-05 17:29] LABS: Urine Bacteria None Seen /hpf (None Seen)
[2024-06-05 17:59] LABS: Urine Blood 1+ /uL (Negative); Urine Clarity Clear (Clear); Urine Color Light-Yellow (Yellow); Urine Protein, UAD Negative (Negative); Urine Squamous Epithelial Cell FEW /hpf (<5); Urine Urobilinogen 2 mg/dL (Negative); Urine WBC 2 /hpf (0 - 5)
[2024-06-06] VITALS (7 sets, daily range): BP systolic 104–151; BP diastolic 62–83; PULSE 63–91; RESP 18–19; TEMP 97.4–99; O2SAT 95–97
--- NOTE | 2024-06-06 15:07 | DVHDS2 ---
Discharge Summary Date of Admission Jun 03, 2024 at 19:57 Date of Discharge: Jun 06, 2024 Labs/Diagnostic Data: Laboratory Results Test 06/05/24 16:35 06/05/24 05:40 06/04/24 13:15 06/04/24 11:53 Urine Color Light-yellow (Yellow) Urine Clarity Clear (Clear) Urine pH 6.0 (5.0-9.0) Urine Specific [place] 1.010 (1.001-1.035) Urine Protein Negative (Negative) Urine Ketones Negative (Negative) Urine Blood 1+ /uL (Negative) Urine Nitrite Negative (Negative) Urine Bilirubin Negative (Negative) Urine Urobilinogen 2 mg/dL (Negative) Urine Leukocyte Esterase Negative /uL (Negative) Urine RBC 1 /hpf (0 - 4) Urine WBC 2 /hpf (0 - 5) Urine Squamous Epithelial Cells Few /hpf (<5) Urine Bacteria None seen /hpf (None Seen) Urine Glucose 4+ mg/dL (Normal) White Blood Count 15.0 10^3/uL (4.4-10.8) Red Blood Count 4.18 10^6/uL (4.0-5.20) Hemoglobin 12.8 g/dL (12.2-16.2) Hematocrit 37.3 % (36.0-46.0) Mean Corpuscular Volume 89.2 fL (80.0-100.0) Mean Corpuscular Hemoglobin 30.6 pg (28.0-32.0) Mean Corpuscular Hemoglobin Concent 34.3 g/dL (32.0-36.0) Red Cell Distribution Width 12.5 % (11.8-14.3) Platelet Count 243 10^3/uL (140-450) Mean Platelet Volume 7.9 fL (6.9-10.8) Neutrophils (%) (Auto) % (37.0-80.0) Lymphocytes (%) (Auto) % (10.0-50.0) Monocytes (%) (Auto) % (0.0-12.0) Basophils (%) (Auto) % (0.0-2.0) Neutrophils # (Auto) 10 ^3/uL (1.6-8.6) Lymphocytes # (Auto) 10 ^3/uL (0.4-5.4) Monocytes # (Auto) 10 ^3/uL (0-1.3) Differential Total Cells Counted 100.0 (100) Neutrophils % (Manual) 69 (37.0-80.0) Band Neutrophils % (Manual) 4 Lymphocytes % (Manual) 13 (10.0-50.0) Monocytes % (Manual) 13 (0-12) Eosinophils % (Manual) 1 (0-7) Basophils % (Manual) 0 (0.0-2.0) Metamyelocytes % (manual) 0 Myelocytes % (Manual) 0 Promyelocytes % (Manual) 0 Blast Cells % (Manual) 0 Reactive Lymphocytes 0 Platelet Estimate Adequate Sodium Level 129 mmol/L (136-145) Potassium Level 3.6 mmol/L (3.5-5.1) Chloride Level 97 mmol/L (98-107) Carbon Dioxide Level 23 mmol/L (20-31) Anion Gap 9 (5-15) Blood Urea Nitrogen 8 mg/dL (9-23) Creatinine 0.70 mg/dL (0.550-1.02) Glomerular Filtration Rate Calc 107 mL/min (>90) BUN/Creatinine Ratio 11.4 (10.0-20.0) Serum Glucose 329 mg/dL (74-106) Calcium Level 8.8 mg/dL (8.7-10.4) Troponin I High Sensitivity < 3 ng/L (</=34) POC Glucose 364 mg/dl (70-106) Test 06/04/24 11:35 06/04/24 06:08 06/03/24 11:09 06/03/24 10:36 Influenza Type A Antigen Negative (Negative) Influenza Type B Antigen Negative (Negative) SARS-CoV-2 Antigen (Rapid) Negative (NEGATIVE) Eosinophils (%) (Auto) 1.1 % (0.0-7.0) Eosinophils # (Auto) 0.2 10 ^3/uL (0-0.8) Basophils # (Auto) 0.1 10 ^3/uL (0-0.2) Nucleated Red Blood Cells 0.0 % Hemoglobin A1c 12.6 % A1C (<5.7) Lactic Acid Level 0.9 mmol/L (0.4-2.0) Hepatitis B Surface Antigen Negative (Negative) Hepatitis C Antibody Negative (Negative) B-Type Natriuretic Peptide 29.80 pg/mL (0-100) Beta HCG, Quantitative 3.6 mIU/mL (1.5-4.2) Urine Opiates Screen Neg (NEGATIVE) Urine Fentanyl Screen Neg (NEGATIVE) Urine Barbiturates Screen Neg (NEGATIVE) Urine Phencyclidine Screen Neg (NEGATIVE) Urine Amphetamines Screen Neg (NEGATIVE) Urine Benzodiazepines Screen Neg (NEGATIVE) Urine Cocaine Screen Neg (NEGATIVE) Urine Cannabinoids Screen Pos (NEGATIVE) Test 06/03/24 10:22 Total Bilirubin 0.5 mg/dL (0.2-1.0) Aspartate Amino Transferase (AST) 82 U/L (13-40) Alanine Aminotransferase (ALT) 112 U/L (7-40) Alkaline Phosphatase 229 U/L (46-116) Total Protein 6.7 g/dL (5.7-8.2) Albumin 3.8 g/dL (3.2-4.8) Other Laboratory Tests 06/05/24 05:40 Condition at Discharge: Stable Final Diagnosis/Problems List 58-year-old female with a known history of diabetes mellitus type 2, hypertension, hypothyroidism, anxiety disorder, bipolar disorder initially presented to the hospital with chest pain palpitation, febrile episodes on and off for last few days, status post mechanical fall five days ago eventually fell onto her face and hold her coccyx as well presented to the hospital with chest pain palpitations found to have 1. Chest pain rule out [place] 2. Flu-like symptoms ruled out COVID-19/influenza A and B 3. Urinary tract infection 4. Leukocytosis 5. Uncontrolled hyperglycemia in the setting of Diabetes mellitus type 2 6. Pseudohyponatremia secondary to hyperglycemia 7. Anxiety/bipolar disorder 8. Chronic marijuana use 9. Noncompliance Discharge Disposition: Home SNF Discharge Will this Physician continue t: No Discharge Instruct/Medications Diet: Cardiac 2g Na,low cholest Diet comment: 200 ADA diet Activity: See Comment Discharge Statement: "Patient was advised to return to the ER or call 911 if any headaches, dizziness, shortness of breath, chest pain, abdominal pain, bleeding, fevers, or worsening of medical condition. Patient was counseled about treatment plan, medications, possible side effects, patientverbalized understanding. All questions were answered to the best of my ability. This discharge took greater then 30 minutes in planning, reviewing documentation, counseling the patient, and discussing with other team members." ASSESSMENT ASSESSMENT Assessment 58-year-old female with a known history of diabetes mellitus type 2, hypertension, hypothyroidism, anxiety disorder, bipolar disorder initially presented to the hospital with chest pain palpitation, febrile episodes on and off for last few days, status post mechanical fall five days ago eventually fell onto her face and hold her coccyx as well presented to the hospital with chest pain palpitations found to have 1. Chest pain rule out [place] 2. Flu-like symptoms ruled out COVID-19/influenza A and B 3. Urinary tract infection 4. Leukocytosis 5. Uncontrolled hyperglycemia in the setting of Diabetes mellitus type 2 6. Pseudohyponatremia secondary to hyperglycemia 7. Anxiety/bipolar disorder 8. Chronic marijuana use 9. Noncompliance FILOMENA FLOYD MD Jun 06, 2024 15:07
[2024-06-06] MEDS: LACTULOSE 20Gm/30ML SOLN PO PRN (15:39)
--- NOTE | 2024-06-06 16:50 | DVHINCON2 ---
Date Seen: Jun 06, 2024 Referring Physician MD Dave Reason for Consultation CP, palpitations History of Present Illness This is a 48-year-old female patient who presents to the emergency room with chief complaint of chest pain. She reports that the chest pain has been intermittently coming and going for five days prior to emergency room arrival. She describes the chest pain as unprovoked, intermittent, stabbing in nature, located to her left inframammary area without radiation. Associated symptoms include shortness of breath. She denies any aggravating precipitating factors. She also reports back pain related to a recent fall that she sustained in which she fell on her tailbone and then her face. Cardiology has now been consulted for further workup. Initial twelve lead electrocardiogram reveals sinus tachycardia without any significant ST segment changes. Initial serial troponin levels have been negative. Significant past medical history includes hypertension, thyroid disease, type 2 diabetes mellitus, anxiety, bipolar disorder, and morbid obesity. Past Medical History Past medical history reviewed. No other significant than mentioned above. Past Surgical History Cholecystectomy Family History: Diabetes mellitus Grandmother Family History Family history reviewed. Social History Denies the use of tobacco, alcohol or illicit drugs. Allergies: Coded Allergies: NO KNOWN ALLERGIES (Unverified , 05/07/10) Home Meds Reported Medications Budesonide-Formoterol Fumarate (Budesonide/Formoterol Fum 160-4.5 Mcg/Act) 1 Aer Aer, 1 AER IN, AER 06/04/24 Lisinopril (Lisinopril) 10 Mg Tab, 10 MG PO DAILY for 30 Days, MG 06/04/24 Loratadine (Claritin) 10 Mg Tab, 10 MG PO, TAB 25 Meclizine Hcl (Meclizine Hcl) 25 Mg Tab, 25 MG PO BIDP for 30 Days, MG 06/04/24 Aspirin (Aspir-Low) 81 Mg Tab, 81 MG PO DAILY for 30 Days, MG 25 Ibuprofen Micronized (Ibuprofen) 800 Mg Tab, 800 MG PO, TAB /25 Ondansetron Odt 4MG Tab (ZOFRAN PO) 4 Mg Tb, 4 MG PO, TAB ODT TAB-DISSOLVE IN MOUTH, THEN SWALLOW 06/04/24 Glipizide (Glipizide) 5 Mg Tab, 5 MG PO for 30 Days, MG /2/25 Levothyroxine Sodium (Levothyroxine Sodium) 50 Mcg Tab, 50 MCG PO QAM for 30 Days, MCG 06/04/24 Metformin Hydrochloride (Metformin Hcl) 850 Mg Tab, 850 MG PO BID, TAB 06/04/24 Discontinued Reported Medications Divalproex Sodium (Depakote) 250 Mg Tab 03/15/11 Alprazolam (Xanax) 0.5 Mg Tb 03/15/11 Lorazepam (Ativan) 1 Mg Tab 03/15/11 Quetiapine Fumerate (Seroquel) 100 Mg Tab 03/15/11 Home Meds Home medications reviewed. Current Medications Current Medications Medications (Trade) Dose Ordered Sig/Lavonne Route PRN Reason Start Time Stop Time Status Last Admin Polyethylene Glycol (Miralax 17GM Powder) 17 gm DAILY PO 06/07/24 10:00 Lactulose 30 ml TIDP PRN PO FOR CONSTIPATION 06/06/24 14:15 06/06/24 15:39 Review of Systems Constitutional: No symptom reported Ears, Nose, & Throat: No symptom reported Eyes: No symptom reported Neurological: No symptoms reported Pulmonary/Respiratory: Shortness of breath Cardiovascular: Chest pain Gastrointestinal: No symptom reported Genitourinary: No symptom reported Musculoskeletal: No symptom reported Skin: No symptom reported Psychiatric: No symptom reported Endocrine: No symptom reported Hematologic/Lymphatic: No symptom reported Vital Signs Vital Signs Date Time Temp Pulse Resp B/P (MAP) Pulse Ox O2 Delivery O2 Flow Rate FiO2 06/06/24 16:00 112/52 06/06/24 13:03 97.8 78 18 95 97.8 06/06/24 08:28 Room Air* 0 21 Physical Exam General Appearance: Cooperative. Morbidly obese Pulmonary/Respiratory: Clear, bilateral breaths sounds. Cardiovascular/Chest: Regular rate and rhythm. Peripheral Pulses: 2+ Radial (R). 2+ Radial (L). 2+ Pedal (R). 2+ Pedal (L) Abdominal Exam: Normal bowel sounds. Ankle Exam: Negative ankle edema Lower extremities: Negative lower extremity edema Neuro/Mental Status: A/OX4, coherent. Thoughts/Psych: Normal thought pattern. Appropriate mood and affect. Good judgment and insight. Appearance: No acute distress. Skin Exam: Normal inspection. Normal color. Warm and dry. Labs/Diagnostic Data Labs Test 06/05/24 16:35 06/05/24 05:40 06/04/24 13:15 06/04/24 11:53 Range/Units Urine Color Light-yellow Yellow Urine Clarity Clear Clear Urine pH 6.0 5.0-9.0 Urine Specific [place] 1.010 1.001-1.035 Urine Protein Negative Negative Urine Ketones Negative Negative Urine Blood 1+ H Negative /uL Urine Nitrite Negative Negative Urine Bilirubin Negative Negative Urine Urobilinogen 2 H Negative mg/dL Urine Leukocyte Esterase Negative Negative /uL Urine RBC 1 0 - 4 /hpf Urine WBC 2 0 - 5 /hpf Urine Squamous Epithelial Cells Few <5 /hpf Urine Bacteria None seen None Seen /hpf Urine Glucose 4+ H Normal mg/dL White Blood Count 15.0 H 4.4-10.8 10^3/uL Red Blood Count 4.18 4.0-5.20 10^6/uL Hemoglobin 12.8 12.2-16.2 g/dL Hematocrit 37.3 36.0-46.0 % Mean Corpuscular Volume 89.2 80.0-100.0 fL Mean Corpuscular Hemoglobin 30.6 28.0-32.0 pg Mean Corpuscular Hemoglobin Concent 34.3 32.0-36.0 g/dL Red Cell Distribution Width 12.5 11.8-14.3 % Platelet Count 243 140-450 10^3/uL Mean Platelet Volume 7.9 6.9-10.8 fL Neutrophils (%) (Auto) 37.0-80.0 % Lymphocytes (%) (Auto) 10.0-50.0 % Monocytes (%) (Auto) 0.0-12.0 % Basophils (%) (Auto) 0.0-2.0 % Neutrophils # (Auto) 1.6-8.6 10 ^3/uL Lymphocytes # (Auto) 0.4-5.4 10 ^3/uL Monocytes # (Auto) 0-1.3 10 ^3/uL Differential Total Cells Counted 100.0 100 Neutrophils % (Manual) 69 37.0-80.0 Band Neutrophils % (Manual) 4 Lymphocytes % (Manual) 13 10.0-50.0 Monocytes % (Manual) 13 H 0-12 Eosinophils % (Manual) 1 0-7 Basophils % (Manual) 0 0.0-2.0 Metamyelocytes % (manual) 0 Myelocytes % (Manual) 0 Promyelocytes % (Manual) 0 Blast Cells % (Manual) 0 Reactive Lymphocytes 0 Platelet Estimate Adequate Sodium Level 129 L 136-145 mmol/L Potassium Level 3.6 3.5-5.1 mmol/L Chloride Level 97 L 98-107 mmol/L Carbon Dioxide Level 23 20-31 mmol/L Anion Gap 9 5-15 Blood Urea Nitrogen 8 L 9-23 mg/dL Creatinine 0.70 0.550-1.02 mg/dL Glomerular Filtration Rate Calc 107 >90 mL/min BUN/Creatinine Ratio 11.4 10.0-20.0 Serum Glucose 329 H 74-106 mg/dL Calcium Level 8.8 8.7-10.4 mg/dL Troponin I High Sensitivity < 3 L </=34 ng/L POC Glucose 364 H 70-106 mg/dl Test 06/04/24 11:35 06/04/24 06:08 06/03/24 11:09 06/03/24 10:36 Range/Units Influenza Type A Antigen Negative Negative Influenza Type B Antigen Negative Negative SARS-CoV-2 Antigen (Rapid) Negative NEGATIVE Eosinophils (%) (Auto) 1.1 0.0-7.0 % Eosinophils # (Auto) 0.2 0-0.8 10 ^3/uL Basophils # (Auto) 0.1 0-0.2 10 ^3/uL Nucleated Red Blood Cells 0.0 % Hemoglobin A1c 12.6 H <5.7 % A1C Lactic Acid Level 0.9 0.4-2.0 mmol/L Hepatitis B Surface Antigen Negative Negative Hepatitis C Antibody Negative Negative B-Type Natriuretic Peptide 29.80 0-100 pg/mL Beta HCG, Quantitative 3.6 1.5-4.2 mIU/mL Urine Opiates Screen Neg NEGATIVE Urine Fentanyl Screen Neg NEGATIVE Urine Barbiturates Screen Neg NEGATIVE Urine Phencyclidine Screen Neg NEGATIVE Urine Amphetamines Screen Neg NEGATIVE Urine Benzodiazepines Screen Neg NEGATIVE Urine Cocaine Screen Neg NEGATIVE Urine Cannabinoids Screen Pos NEGATIVE Test 06/03/24 10:22 Range/Units Total Bilirubin 0.5 0.2-1.0 mg/dL Aspartate Amino Transferase (AST) 82 H 13-40 U/L Alanine Aminotransferase (ALT) 112 H 7-40 U/L Alkaline Phosphatase 229 H 46-116 U/L Total Protein 6.7 5.7-8.2 g/dL Albumin 3.8 3.2-4.8 g/dL Microbiology Date/Time Source Procedure Growth Status 06/03/24 11:09 Blood Blood Culture - Preliminary NO GROWTH AFTER 72 HOURS OF INCUBATION. Resulted 06/03/24 10:36 Voided Urine Urine Culture - Final Complete Assessment Chest pain, rule out coronary ischemia Hypertension Uncontrolled type 2 diabetes mellitus, Hgb A1c 12.6% Urinary tract infection Chronic back pain Anxiety disorder Bipolar disorder Marijuana use Morbid obesity Plan/Recommendation We will continue with the following plan/recommendations (Dr. Goodman): * Transthoracic echocardiogram reveals EF 50-55% with normal diastolic function. * Chest pain protocol * HEART score: 3 points * BP control * DVT/VTE prophylaxis * Nuclear stress test 06/08/24 Patient seen and examined at bedside with . Plans for nuclear stress test on 06/08/2024. Thank you for allowing us to care for this patient. Please call with any questions or concerns. Critical care time spent: 44 minutes This medical document was created using an electronic medical record system with voice recognition software and computerized dictation system. Although this document has been carefully reviewed, there might still be some phonetic and typographical errors. Occasional wrong-word or ``sound-alike substitutions may have occurred due to the inherent limitations of voice recognition software. These areas are purely typographical due to imperfections of the software programs and do not reflect any compromise in the patient's medical care. Please read the chart carefully and recognize, using context, where these substitutions have occurred. Plan discussed with: Patient Date of Service: Jun 06, 2024 Billing Provider: XIOMY TEIXEIRA Cardiology Common Codes: [id number] INP/OBS CARE (High) Cardiology Consultation Codes: [id number] CONSULT <45MIN XIOMY TEIXEIRA Jun 06, 2024 16:50
--- NOTE | 2024-06-06 18:32 | DVHSR ---
APPROVED REPORT EXAM: Two-dimensional and M-mode echocardiogram with Doppler and color Doppler. Blood Pressure: 145/85 mmHg INDICATION Chest Pain Palpitations RISK FACTORS Obesity: Height: 5'7, Weight: 271 DIMENSIONS LVDd4.9 (3.8-5.7cm)LA (2D)4.3 (1.9-4.0cm)Aortic Root3.5 (2.0-3.7cm) LVDs3.6 (2.5-4.0cm)LA (MM) (1.9-4.0cm)Aortic Cusp Exc1.7 (1.5-2.0cm) EF (%) 55.0 (55-70%)Rt. Atrium3.3 (1.9-4.0cm)Asc. Aorta cm IVSd1.2 (0.7-1.1cm)RV (D) (1.8-2.4cm) PWd0.8 (0.7-1.1cm) Mitral Valve MitralMitral Stenosis E wave0.86m/sMV Mean GR.mmHg A wave1.04m/sMV Peak GR.49mmHg E/A ratio0.82D MVAcm2 DECEL [id number] 1/2 [place] Aortic Valve Aortic ValveAortic Stenosis V11.30m/[place] Mean GR.5mmHg V21.55m/[place] Peak GR.10mmHg LVOT Diameter2.0 (1.8-2.4cm)Doppler AVA2.63cm2 LEFT VENTRICLE The left ventricle is normal size. There is normal left ventricular wall thickness. Left ventricle systolic function is borderline. The Ejection Fraction is 50-55%. Left ventricular diastolic function is normal. Wall motion is not well visualized but looks grossly normal. RIGHT VENTRICLE The right ventricle is normal size. The right ventricular systolic function is normal. ATRIA The left atrial size is normal. The right atrium size is normal. MITRAL VALVE The mitral valve is normal. There is no mitral valve regurgitation noted. PULMONIC VALVE The pulmonic valve is not well visualized. TRICUSPID VALVE The tricuspid valve is grossly normal. No tricuspid regurgitation. AORTIC VALVE The aortic valve is not well visualized. No aortic regurgitation is present. No evidence of aortic valve stenosis. GREAT VESSELS The aortic root is normal size. PERICARDIAL EFFUSION The pericardium appears normal. Other Information Quality : Technically DifficultRhythm : Conclusion The left ventricle is normal size. There is normal left ventricular wall thickness. Left ventricle sy stolic function is borderline, Ejection Fraction is 50-55%. Wall motion is not well visualized but lo oks grossly normal. Normal diastolic function. The right ventricular systolic function is normal. The left and right atrial size is normal. No significant valvular abnormalities. There is no pericardial effusion.
[2024-06-07] VITALS (9 sets, daily range): BP systolic 110–136; BP diastolic 54–76; PULSE 75–97; RESP 16–18; TEMP 97.8–98.4; O2SAT 94–97
[2024-06-07 07:04] LABS: Basophils # (auto) 0.1 10 ^3/uL (0-0.2); Basophils % (auto) 0.8 % (0.0-2.0); Eosinophils # (auto) 0.4 10 ^3/uL (0-0.8); Eosinophils % (auto) 3.6 % (0.0-7.0); Hematocrit 36.8 % (36.0-46.0); Hemoglobin 12.4 g/dL (12.2-16.2); Lymphocytes # (auto) 2.1 10 ^3/uL (0.4-5.4); Lymphocytes % (auto) 18.2 % (10.0-50.0); Mean Corpuscular Hemoglobin 30.4 pg (28.0-32.0); Mean Corpuscular Hgb Conc. 33.8 g/dL (32.0-36.0); Mean Corpuscular Volume 89.9 fL (80.0-100.0); Monocytes # (auto) 0.9 10 ^3/uL (0-1.3); Monocytes % (auto) 8.2 % (0.0-12.0); Neutrophils % (auto) 69.2 % (37.0-80.0); Platelet Count (auto) 308 10^3/uL (140-450); Red Cell Distribution Width 12.8 % (11.8-14.3); White Blood Cell 11.6 10^3/uL (4.4-10.8)
[2024-06-07 07:33] LABS: Calcium 9.1 mg/dL (8.7-10.4); Chloride 101 mmol/L (98-107); Potassium 3.8 mmol/L (3.5-5.1)
[2024-06-07 07:34] LABS: Anion Gap 7 (5-15); Carbon Dioxide 27 mmol/L (20-31); Sodium 135 mmol/L (136-145)
[2024-06-07 07:39] LABS: BUN/Creatinine Ratio 17.2 (10.0-20.0); Blood Urea Nitrogen 11 mg/dL (9-23)
[2024-06-07 07:40] LABS: LDL Cholesterol 75 mg/dL (< 100)
[2024-06-07 07:41] LABS: Cholesterol 114 mg/dL (< 200)
[2024-06-07 07:44] LABS: Glucose 272 mg/dL (74-106); HDL Cholesterol 10 mg/dL (40-59); Triglycerides 198 mg/dL (< 150)
--- NOTE | 2024-06-07 08:45 | ECG ---
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
[2024-06-07] MEDS: POLYETHYLENE GLYCOL 17 GM PWDR PO SCH (08:46)
--- NOTE | 2024-06-07 08:50 | ECG ---
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
--- NOTE | 2024-06-07 16:22 | DVHPN2 ---
Consult Progress Note Date Seen: Jun 07, 2024 Subjective Review of Systems: CVS:Normal, RESPIRATORY:Normal, NEURO:Normal Other Systems: Denies any cardiac symptoms Objective vital signs Vital Sign Date Time Temp Pulse Resp B/P (MAP) Pulse Ox O2 Delivery O2 Flow Rate FiO2 06/07/24 12:40 97.8 79 18 115/65 (82) 96 97.8 06/07/24 07:51 Room Air* 0 21 Total Intake and Output 06/06/24 06/06/24 06/07/24 15:00 23:00 07:00 Intake Total 50 ml 2330 ml 600 ml Output Total 400 ml Balance 50 ml 2330 ml 200 ml medications Current Medications Medications Dose Ordered Sig/Lavonne Route Start Time Stop Time Status Last Admin Dose Admin Nitroglycerin 0.4 mg Q5MINP PRN SL 06/03/24 20:00 06/06/24 15:20 0.4 MG Morphine Sulfate 2 mg Q30M PRN IV 06/03/24 20:00 06/06/24 02:32 2 MG Ondansetron HCl 4 mg Q6HPRN PRN IV 06/03/24 20:00 06/05/24 17:28 4 MG Aspirin 81 mg DAILY PO 06/04/24 10:00 06/07/24 08:46 81 MG Melatonin 5 mg ONCE@2200 PRN PO 06/03/24 20:00 Enoxaparin Sodium 40 mg DAILY SC 06/04/24 10:00 06/07/24 08:48 40 MG Acetaminophen 650 mg Q6HPRN PRN PO 06/03/24 20:00 06/05/24 17:29 650 MG Acetaminophen/ Hydrocodone Bitart 1 tab Q6HPRN PRN PO 06/03/24 20:00 06/07/24 11:23 1 TAB Ceftriaxone Sodium/Dextrose 50 ml @ 50 mls/hr DAILY IV 06/04/24 10:00 06/07/24 08:48 50 MLS/HR Docusate Sodium 200 mg BID PO 06/04/24 10:00 06/06/24 10:00 200 MG Sennosides 8.6 mg QHSP PRN PO 06/04/24 06:45 Diagnostic Test (Pha) 1 strip ACHS 06/04/24 07:00 06/07/24 11:23 1 STRIP Insulin Human Regular HS SC 06/04/24 22:00 06/06/24 20:56 10 UNITS Insulin Human Regular AC SC 06/04/24 07:00 06/07/24 11:24 15 UNITS Polyethylene Glycol 17 gm DAILY PO 06/07/24 10:00 Lactulose 30 ml TIDP PRN PO 06/06/24 14:15 06/06/24 15:39 30 ML Examination: LUNGS:Normal, CVS:Normal, NEURO:Normal laboratory and microbiology Laboratory Tests 06/07/24 05:55 Test 06/07/24 05:55 Range/Units Serum Glucose 272 H 74-106 mg/dL Problem List/Assessment/Plan Problem List/Assessment/Plan Chest pain rule out coronary artery disease Uncontrolled type 2 diabetes mellitus, Hgb A1c 12.6% Dyslipidemia, newly diagnosed ?Thyroid disease Hypertension Anxiety/bipolar disorder Cannabinoid use Morbid obesity Plan/Recommendation (Dr. Keller) * Transthoracic echocardiogram reveals EF 50-55% with normal diastolic function. * Cardiolite stress test to rule out coronary ischemia on 06/08/24 * Single-antiplatelet therapy and lipid lowering agent * Chest pain protocol * HEART score: 3 points * DVT/VTE prophylaxis * Thyroid workup per primary care team Patient seen and examined at bedside with Dr. Keller. Thank you for allowing us to care for this patient. Please call with any questions or concerns. Critical care time spent: 44 minutes This medical document was created using an electronic medical record system with voice recognition software and computerized dictation system. Although this document has been carefully reviewed, there might still be some phonetic and typographical errors. Occasional wrong-word or ``sound-alike substitutions may have occurred due to the inherent limitations of voice recognition software. These areas are purely typographical due to imperfections of the software programs and do not reflect any compromise in the patient's medical care. Please read the chart carefully and recognize, using context, where these substitutions have occurred. Plan discussed with: Patient, Other Date of Service: Jun 07, 2024 Billing Provider: TITA KELLER MD Cardiology Common Codes: [id number] HOSP CARE(GIORGI Mckeon [facility] Jun 07, 2024 16:22
--- NOTE | 2024-06-07 17:20 | DVHPN2 ---
Subjective Patient is complaining of chest pain, patient does have known history of chronic back pain currently on narcotics at home. Reviewed: Care Plan Changes from previous H/P or p: No Changes Objective Vitals Vital Signs Date Time Temp Pulse Resp B/P (MAP) Pulse Ox O2 Delivery O2 Flow Rate FiO2 06/07/24 17:00 98.2 97 18 118/58 (78) 96 98.2 06/07/24 07:51 Room Air* 0 21 Intake/Output Intake and Output 06/07/24 07:00 Intake Total 2980 ml Output Total 400 ml Balance 2580 ml Intake Oral 2930 ml IV Total 50 ml Output Urine Total 400 ml # Voids 2 # Bowel Movements 5 Exam HEENT pupils are reactive Neck is supple CV is S1-S2 regular rate and rhythm Respiratory diminished breath sounds bases GI positive bowel sound Extremity no edema 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 Medications Current Medications Medications Dose Ordered Sig/Lavonne Route Start Time Stop Time Status Last Admin Dose Admin Nitroglycerin 0.4 mg Q5MINP PRN SL 06/03/24 20:00 06/06/24 15:20 0.4 MG Morphine Sulfate 2 mg Q30M PRN IV 06/03/24 20:00 06/06/24 02:32 2 MG Ondansetron HCl 4 mg Q6HPRN PRN IV 06/03/24 20:00 06/05/24 17:28 4 MG Aspirin 81 mg DAILY PO 06/04/24 10:00 06/07/24 08:46 81 MG Melatonin 5 mg ONCE@2200 PRN PO 06/03/24 20:00 Enoxaparin Sodium 40 mg DAILY SC 06/04/24 10:00 06/07/24 08:48 40 MG Acetaminophen 650 mg Q6HPRN PRN PO 06/03/24 20:00 06/05/24 17:29 650 MG Acetaminophen/ Hydrocodone Bitart 1 tab Q6HPRN PRN PO 06/03/24 20:00 06/07/24 11:23 1 TAB Ceftriaxone Sodium/Dextrose 50 ml @ 50 mls/hr DAILY IV 06/04/24 10:00 06/07/24 08:48 50 MLS/HR Docusate Sodium 200 mg BID PO 06/04/24 10:00 06/06/24 10:00 200 MG Sennosides 8.6 mg QHSP PRN PO 06/04/24 06:45 Diagnostic Test (Pha) 1 strip ACHS 06/04/24 07:00 06/07/24 17:07 1 STRIP Insulin Human Regular HS SC 06/04/24 22:00 06/06/24 20:56 10 UNITS Insulin Human Regular AC SC 06/04/24 07:00 06/07/24 17:08 12 UNITS Polyethylene Glycol 17 gm DAILY PO 06/07/24 10:00 Lactulose 30 ml TIDP PRN PO 06/06/24 14:15 06/06/24 15:39 30 ML Atorvastatin Calcium 40 mg HS PO 06/07/24 22:00 Laboratory Results Laboratory Tests 06/07/24 05:55 Chemistry Test 06/07/24 05:55 Calcium Level 9.1 mg/dL (8.7-10.4) Lipid panel Test 06/07/24 05:55 Cholesterol Level 114 mg/dL (< 200) HDL Cholesterol 10 mg/dL (40-59) L Triglycerides Level 198 mg/dL (< 150) H HgA1c, TSH Test 06/07/24 05:55 Thyroid Stimulating Hormone (TSH) 5.90 uIU/mL (0.55-4.78) H Urinalysis Test 06/05/24 16:35 Urine Color Light-yellow (Yellow) Urine Clarity Clear (Clear) Urine pH 6.0 (5.0-9.0) Urine Specific [place] 1.010 (1.001-1.035) Urine Protein Negative (Negative) Urine Ketones Negative (Negative) Urine Blood 1+ /uL (Negative) H Urine Nitrite Negative (Negative) Urine Bilirubin Negative (Negative) Urine Urobilinogen 2 mg/dL (Negative) H Urine Leukocyte Esterase Negative /uL (Negative) Urine RBC 1 /hpf (0 - 4) Urine WBC 2 /hpf (0 - 5) Urine Squamous Epithelial Cells Few /hpf (<5) Urine Bacteria None seen /hpf (None Seen) Urine Glucose 4+ mg/dL (Normal) H Microbiology Microbiology Date/Time Source Procedure Growth Status 06/03/24 11:09 Blood Blood Culture - Preliminary NO GROWTH AFTER 72 HOURS OF INCUBATION. Resulted 06/03/24 10:36 Voided Urine Urine Culture - Final Complete Assessment/Plan Assessment/Plan 58-year-old female with a known history of diabetes mellitus type 2, hypertension, hypothyroidism, anxiety disorder, bipolar disorder initially presented to the hospital with chest pain palpitation, febrile episodes on and off for last few days, status post mechanical fall five days ago eventually fell onto her face and hold her coccyx as well presented to the hospital with chest pain palpitations found to have 1. Chest pain rule out [place] 2. Flu-like symptoms ruled out COVID-19/influenza A and B 3. Urinary tract infection 4. Leukocytosis 5. Uncontrolled hyperglycemia in the setting of Diabetes mellitus type 2 6. Pseudohyponatremia secondary to hyperglycemia 7. Anxiety/bipolar disorder 8. Chronic marijuana use 9. Noncompliance 10. Chronic back pain and narcotic dependency -patient is scheduled for stress test. -continue antibiotics, follow up urine culture, pain meds Discharge plan. Plan discussed with: Other Date of Service: Jun 07, 2024 Billing Provider: FILOMENA FLOYD MD Common Visit Codes: NOT BILLABLE FILOMENA FLOYD MD Jun 07, 2024 17:20
[2024-06-07] MEDS: ATORVASTATIN 20 MG TAB PO SCH (22:20)
[2024-06-08 01:01] VITALS: BP 118/53; PULSE 96; RESP 19; TEMP 98.6; O2SAT 94
[2024-06-08 08:00] VITALS: PULSE 69; PULSE 82; RESP 18; O2SAT 96
[2024-06-08 08:56] VITALS: BP 118/68; PULSE 69; RESP 16; TEMP 97.8; O2SAT 93
[2024-06-08] MEDS: REGADENOSON 0.4 MG/5 ML SYRG IV ONE ×2 (11:14→11:15)
--- NOTE | 2024-06-08 12:19 | DVHSR ---
APPROVED REPORT Exam: Nuclear Stress Test BMI: 0 Stress Test Details HR Max Heart Rate (APMHR): 172 bpm Target HR (85% APMHR): 146 bpm BP ECG Stress ECG Conclusion Review of the myocardial perfusion images demonstrated a small area of mild intensity reduced radiotr acer uptake in the distal anterior wall that appears to be more intense in the stress images. This i s likely secondary to breast attenuation artifact. Otherwise, there is homogeneous radiotracer uptak e throughout the rest of the left ventricular myocardium. Left ventricular volumes are normal. Ejec tion fraction is normal and is estimated at 53%. There is no significant transient ischemic dilatati on. No gated images are available to review for wall motion abnormalities. Impression: 1. Low risk nuclear myocardial perfusion scan with no evidence of ischemia. 2. Normal left ventricular systolic function. NM EXAM: Myocardial Perfusion REST/STRESS Imaging Protocol: Rest Tc-99m/Stress Tc-99m 1 day Resting Data Rest SPECT myocardial perfusion imaging was performed in supine position 60 minutes following the int ravenous injection of 13.4 mCi of Tc-99m Sestamibi. Time of rest injection: 0943 Time of rest imagin Administration Route: IV Administration Site: Right Arm Pharmacologic Stress Pharmacologic stress test was performed by injecting Regadenoson 0.4 mg IV push followed by the intra venous injection of 32 mCi of Tc-99m Sestamibi. Time of stress injection: 1115 Time of stress imagin Administration Route: IV Administration Site: Right Arm Gated Stress SPECT was performed 60 minutes after stress injection. The images were gated to evaluate regional wall motion and calculate left ventricular ejection fracti on. Stress only was performed in the Supine position. Nuclear Conclusion ECG Findings: negative for ischemia Clinical Findings: negative for ischemia Nuclear Findings: negative for ischemia Exercise Capacity: not assessed Left Ventricular Function: normal Risk Study: low Review of the myocardial perfusion images demonstrated a small area of mild intensity reduced radiotr acer uptake in the distal anterior wall that appears to be more intense in the stress images. This i s likely secondary to breast attenuation artifact. Otherwise, there is homogeneous radiotracer uptak e throughout the rest of the left ventricular myocardium. Left ventricular volumes are normal. Ejec tion fraction is normal and is estimated at 53%. There is no significant transient ischemic dilatati on. No gated images are available to review for wall motion abnormalities. Impression: 1. Low risk nuclear myocardial perfusion scan with no evidence of ischemia. 2. Normal left ventricular systolic function.
--- NOTE | 2024-06-08 12:23 | DVHPN2 ---
Consult Progress Note Date Seen: Jun 08, 2024 Subjective Review of Systems: CVS:Normal, RESPIRATORY:Normal, NEURO:Normal Other Systems: Cardiolite stress test completed. Denies any further cardiac symptoms Objective vital signs Vital Sign Date Time Temp Pulse Resp B/P (MAP) Pulse Ox O2 Delivery O2 Flow Rate FiO2 06/08/24 08:56 97.8 69 16 118/68 (85) 93 97.8 06/08/24 08:00 Room Air* 0 21 Total Intake and Output 06/07/24 06/07/24 06/08/24 15:00 23:00 07:00 Intake Total 50 ml 1700 ml 300 ml Balance 50 ml 1700 ml 300 ml medications Current Medications Medications Dose Ordered Sig/[place] Route Start Time Stop Time Status Last Admin Dose Admin Nitroglycerin 0.4 mg Q5MINP PRN SL 06/03/24 20:00 06/06/24 15:20 0.4 MG Morphine Sulfate 2 mg Q30M PRN IV 06/03/24 20:00 06/06/24 02:32 2 MG Ondansetron HCl 4 mg Q6HPRN PRN IV 06/03/24 20:00 06/05/24 17:28 4 MG Aspirin 81 mg DAILY PO 06/04/24 10:00 06/07/24 08:46 81 MG Melatonin 5 mg ONCE@2200 PRN PO 06/03/24 20:00 Enoxaparin Sodium 40 mg DAILY SC 06/04/24 10:00 06/07/24 08:48 40 MG Acetaminophen 650 mg Q6HPRN PRN PO 06/03/24 20:00 06/05/24 17:29 650 MG Acetaminophen/ Hydrocodone Bitart 1 tab Q6HPRN PRN PO 06/03/24 20:00 06/08/24 06:48 1 TAB Ceftriaxone Sodium/Dextrose 50 ml @ 50 mls/hr DAILY IV 06/04/24 10:00 06/07/24 08:48 50 MLS/HR Docusate Sodium 200 mg BID PO 06/04/24 10:00 06/07/24 22:20 200 MG Sennosides 8.6 mg QHSP PRN PO 06/04/24 06:45 Diagnostic Test (Pha) 1 strip ACHS 06/04/24 07:00 06/08/24 06:28 1 STRIP Insulin Human Regular HS SC 06/04/24 22:00 06/07/24 22:00 8 UNITS Insulin Human Regular AC SC 06/04/24 07:00 06/08/24 06:29 9 UNITS Polyethylene Glycol 17 gm DAILY PO 06/07/24 10:00 Lactulose 30 ml TIDP PRN PO 06/06/24 14:15 06/06/24 15:39 30 ML Atorvastatin Calcium 40 mg HS PO 06/07/24 22:00 06/07/24 22:20 40 MG Examination: LUNGS:Normal, CVS:Normal, NEURO:Normal laboratory and microbiology Laboratory Tests 06/07/24 05:55 Test 06/07/24 05:55 Range/Units Serum Glucose 272 H 74-106 mg/dL Problem List/Assessment/Plan Problem List/Assessment/Plan Chest pain rule out coronary artery disease Uncontrolled type 2 diabetes mellitus, Hgb A1c 12.6% Dyslipidemia, newly diagnosed ?Thyroid disease Hypertension Anxiety/bipolar disorder Cannabinoid use Morbid obesity Plan/Recommendation (Dr. Ragland) * Transthoracic echocardiogram reveals EF 50-55% with normal diastolic function. * Non-ischemic cardiolite stress test * Lipid lowering agent * Thyroid workup per primary care team There is no further cardiac work-up indicated at this time. Kindly call if in need to re-consult. Thank you for allowing us to care for this patient. This medical document was created using an electronic medical record system with voice recognition software and computerized dictation system. Although this document has been carefully reviewed, there might still be some phonetic and typographical errors. Occasional wrong-word or ``sound-alike substitutions may have occurred due to the inherent limitations of voice recognition software. These areas are purely typographical due to imperfections of the software programs and do not reflect any compromise in the patient's medical care. Please read the chart carefully and recognize, using context, where these substitutions have occurred. 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
[2024-06-08 13:02] VITALS: BP 104/72; PULSE 83; RESP 16; TEMP 98.7; O2SAT 94
[2024-06-08 15:52] VITALS: BP 104/72; PULSE 69; RESP 16; TEMP 97.9; O2SAT 94
--- NOTE | 2024-06-08 16:00 | DVHPN2 ---
Subjective Patient was have known history of chronic back pain. 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 Medications Current Medications Medications Dose Ordered Sig/Lavonne Route Start Time Stop Time Status Last Admin Dose Admin Nitroglycerin 0.4 mg Q5MINP PRN SL 06/03/24 20:00 06/06/24 15:20 0.4 MG Morphine Sulfate 2 mg Q30M PRN IV 06/03/24 20:00 06/06/24 02:32 2 MG Ondansetron HCl 4 mg Q6HPRN PRN IV 06/03/24 20:00 06/05/24 17:28 4 MG Aspirin 81 mg DAILY PO 06/04/24 10:00 06/08/24 13:03 81 MG Melatonin 5 mg ONCE@2200 PRN PO 06/03/24 20:00 Enoxaparin Sodium 40 mg DAILY SC 06/04/24 10:00 06/08/24 13:02 40 MG Acetaminophen 650 mg Q6HPRN PRN PO 06/03/24 20:00 06/08/24 13:00 650 MG Acetaminophen/ Hydrocodone Bitart 1 tab Q6HPRN PRN PO 06/03/24 20:00 06/08/24 06:48 1 TAB Ceftriaxone Sodium/Dextrose 50 ml @ 50 mls/hr DAILY IV 06/04/24 10:00 06/08/24 13:03 50 MLS/HR Docusate Sodium 200 mg BID PO 06/04/24 10:00 06/07/24 22:20 200 MG Sennosides 8.6 mg QHSP PRN PO 06/04/24 06:45 Diagnostic Test (Pha) 1 strip ACHS 06/04/24 07:00 06/08/24 13:33 1 STRIP Insulin Human Regular HS SC 06/04/24 22:00 06/07/24 22:00 8 UNITS Insulin Human Regular AC SC 06/04/24 07:00 06/08/24 13:36 15 UNITS Polyethylene Glycol 17 gm DAILY PO 06/07/24 10:00 Lactulose 30 ml TIDP PRN PO 06/06/24 14:15 06/06/24 15:39 30 ML Atorvastatin Calcium 40 mg HS PO 06/07/24 22:00 06/07/24 22:20 40 MG Laboratory Results Laboratory Tests 06/07/24 05:55 Urinalysis Test 06/05/24 16:35 Urine Color Light-yellow (Yellow) Urine Clarity Clear (Clear) Urine pH 6.0 (5.0-9.0) Urine Specific [place] 1.010 (1.001-1.035) Urine Protein Negative (Negative) Urine Ketones Negative (Negative) Urine Blood 1+ /uL (Negative) H Urine Nitrite Negative (Negative) Urine Bilirubin Negative (Negative) Urine Urobilinogen 2 mg/dL (Negative) H Urine Leukocyte Esterase Negative /uL (Negative) Urine RBC 1 /hpf (0 - 4) Urine WBC 2 /hpf (0 - 5) Urine Squamous Epithelial Cells Few /hpf (<5) Urine Bacteria None seen /hpf (None Seen) Urine Glucose 4+ mg/dL (Normal) H Microbiology Microbiology Date/Time Source Procedure Growth Status 06/03/24 11:09 Blood Blood Culture - Final NO GROWTH AFTER 5 DAYS OF INCUBATION. Complete 06/03/24 10:36 Voided Urine Urine Culture - Final Complete Assessment/Plan Assessment/Plan 58-year-old female with a known history of diabetes mellitus type 2, hypertension, hypothyroidism, anxiety disorder, bipolar disorder initially presented to the hospital with chest pain palpitation, febrile episodes on and off for last few days, status post mechanical fall five days ago eventually fell onto her face and hold her coccyx as well presented to the hospital with chest pain palpitations found to have 1. Chest pain rule out [place] 2. Flu-like symptoms ruled out COVID-19/influenza A and B 3. Urinary tract infection 4. Leukocytosis 5. Uncontrolled hyperglycemia in the setting of Diabetes mellitus type 2 6. Pseudohyponatremia secondary to hyperglycemia 7. Anxiety/bipolar disorder 8. Chronic marijuana use 9. Noncompliance 10. Chronic back pain and narcotic dependency -patient is scheduled for stress test. -continue antibiotics, follow up urine culture, pain meds Discharge plan. Plan discussed with: Patient Date of Service: Jun 06, 2024 Billing Provider: FILOMENA FLOYD MD Common Visit Codes: NOT BILLABLE FILOMENA FLOYD MD Jun 08, 2024 16:00
--- NOTE | 2024-06-08 16:03 | DVHDS2 ---
Discharge Summary Date of Admission Jun 03, 2024 at 19:57 Date of Discharge: Jun 06, 2024 Labs/Diagnostic Data: Laboratory Results Test 06/07/24 05:55 06/05/24 16:35 06/05/24 05:40 06/04/24 13:15 White Blood Count 11.6 10^3/uL (4.4-10.8) Red Blood Count 4.10 10^6/uL (4.0-5.20) Hemoglobin 12.4 g/dL (12.2-16.2) Hematocrit 36.8 % (36.0-46.0) Mean Corpuscular Volume 89.9 fL (80.0-100.0) Mean Corpuscular Hemoglobin 30.4 pg (28.0-32.0) Mean Corpuscular Hemoglobin Concent 33.8 g/dL (32.0-36.0) Red Cell Distribution Width 12.8 % (11.8-14.3) Platelet Count 308 10^3/uL (140-450) Mean Platelet Volume 8.3 fL (6.9-10.8) Neutrophils (%) (Auto) 69.2 % (37.0-80.0) Lymphocytes (%) (Auto) 18.2 % (10.0-50.0) Monocytes (%) (Auto) 8.2 % (0.0-12.0) Eosinophils (%) (Auto) 3.6 % (0.0-7.0) Basophils (%) (Auto) 0.8 % (0.0-2.0) Neutrophils # (Auto) 8.0 10 ^3/uL (1.6-8.6) Lymphocytes # (Auto) 2.1 10 ^3/uL (0.4-5.4) Monocytes # (Auto) 0.9 10 ^3/uL (0-1.3) Eosinophils # (Auto) 0.4 10 ^3/uL (0-0.8) Basophils # (Auto) 0.1 10 ^3/uL (0-0.2) Nucleated Red Blood Cells 0.0 % Sodium Level 135 mmol/L (136-145) Potassium Level 3.8 mmol/L (3.5-5.1) Chloride Level 101 mmol/L (98-107) Carbon Dioxide Level 27 mmol/L (20-31) Anion Gap 7 (5-15) Blood Urea Nitrogen 11 mg/dL (9-23) Creatinine 0.64 mg/dL (0.550-1.02) Glomerular Filtration Rate Calc 109 mL/min (>90) BUN/Creatinine Ratio 17.2 (10.0-20.0) Serum Glucose 272 mg/dL (74-106) Calcium Level 9.1 mg/dL (8.7-10.4) Triglycerides Level 198 mg/dL (< 150) Cholesterol Level 114 mg/dL (< 200) LDL Cholesterol 75 mg/dL (< 100) HDL Cholesterol 10 mg/dL (40-59) Thyroid Stimulating Hormone (TSH) 5.90 uIU/mL (0.55-4.78) Beta HCG, Quantitative 1.8 mIU/mL (1.5-4.2) Urine Color Light-yellow (Yellow) Urine Clarity Clear (Clear) Urine pH 6.0 (5.0-9.0) Urine Specific [place] 1.010 (1.001-1.035) Urine Protein Negative (Negative) Urine Ketones Negative (Negative) Urine Blood 1+ /uL (Negative) Urine Nitrite Negative (Negative) Urine Bilirubin Negative (Negative) Urine Urobilinogen 2 mg/dL (Negative) Urine Leukocyte Esterase Negative /uL (Negative) Urine RBC 1 /hpf (0 - 4) Urine WBC 2 /hpf (0 - 5) Urine Squamous Epithelial Cells Few /hpf (<5) Urine Bacteria None seen /hpf (None Seen) Urine Glucose 4+ mg/dL (Normal) Differential Total Cells Counted 100.0 (100) Neutrophils % (Manual) 69 (37.0-80.0) Band Neutrophils % (Manual) 4 Lymphocytes % (Manual) 13 (10.0-50.0) Monocytes % (Manual) 13 (0-12) Eosinophils % (Manual) 1 (0-7) Basophils % (Manual) 0 (0.0-2.0) Metamyelocytes % (manual) 0 Myelocytes % (Manual) 0 Promyelocytes % (Manual) 0 Blast Cells % (Manual) 0 Reactive Lymphocytes 0 Platelet Estimate Adequate Troponin I High Sensitivity < 3 ng/L (</=34) Test 06/04/24 11:53 06/04/24 11:35 06/04/24 06:08 06/03/24 11:09 POC Glucose 364 mg/dl (70-106) Influenza Type A Antigen Negative (Negative) Influenza Type B Antigen Negative (Negative) SARS-CoV-2 Antigen (Rapid) Negative (NEGATIVE) Hemoglobin A1c 12.6 % A1C (<5.7) Lactic Acid Level 0.9 mmol/L (0.4-2.0) Hepatitis B Surface Antigen Negative (Negative) Hepatitis C Antibody Negative (Negative) B-Type Natriuretic Peptide 29.80 pg/mL (0-100) Test 06/03/24 10:36 06/03/24 10:22 Urine Opiates Screen Neg (NEGATIVE) Urine Fentanyl Screen Neg (NEGATIVE) Urine Barbiturates Screen Neg (NEGATIVE) Urine Phencyclidine Screen Neg (NEGATIVE) Urine Amphetamines Screen Neg (NEGATIVE) Urine Benzodiazepines Screen Neg (NEGATIVE) Urine Cocaine Screen Neg (NEGATIVE) Urine Cannabinoids Screen Pos (NEGATIVE) Total Bilirubin 0.5 mg/dL (0.2-1.0) Aspartate Amino Transferase (AST) 82 U/L (13-40) Alanine Aminotransferase (ALT) 112 U/L (7-40) Alkaline Phosphatase 229 U/L (46-116) Total Protein 6.7 g/dL (5.7-8.2) Albumin 3.8 g/dL (3.2-4.8) Other Laboratory Tests 06/07/24 05:55 Brief Hx & Hospital Course: 58-year-old female with a known history of diabetes mellitus type 2, hypertension, hypothyroidism, anxiety disorder, bipolar disorder initially presented to the hospital with chest pain palpitation, febrile episodes on and off for last few days, status post mechanical fall five days ago eventually fell onto her face and hold her coccyx as well presented to the hospital with chest pain palpitations found to have mild coccyx nondisplaced geiger fracture. Patient does have known history of chronic back pain. Patient was hospital course was eventful for narcotics requirement. Patient was having flu-like symptoms but ruled out for COVID-19 and as well as influenza a and B. patient was UTI was treated. Patient kept complaining of chest pain eventually cardiology was consulted. Patient underwent stress test which was normal. Patient was cleared by Cardiology to be discharged. Patient was being discharged under stable condition. Condition at Discharge: Stable Final Diagnosis/Problems List 1. Chest pain ruled out [place] 2. Flu-like symptoms ruled out COVID-19/influenza A and B 3. Urinary tract infection 4. Leukocytosis 5. Uncontrolled hyperglycemia in the setting of Diabetes mellitus type 2 6. Pseudohyponatremia secondary to hyperglycemia 7. Anxiety/bipolar disorder 8. Chronic marijuana use 9. Noncompliance 10. Chronic back pain with chronic narcotic dependency 11. Mild nondisplaced coccygeal fracture, pain meds as needed. Discharge Disposition: Home SNF Discharge Will this Physician continue t: No Discharge Instruct/Medications Diet: Cardiac 2g Na,low cholest Diet comment: 200 ADA diet Activity: See Comment Follow Up/Referral: Follow up with the PCP in 1-2 weeks Medications: Resume home medication Discharge Statement: "Patient was advised to return to the ER or call 911 if any headaches, dizziness, shortness of breath, chest pain, abdominal pain, bleeding, fevers, or worsening of medical condition. Patient was counseled about treatment plan, medications, possible side effects, patientverbalized understanding. All questions were answered to the best of my ability. This discharge took greater then 30 minutes in planning, reviewing documentation, counseling the patient, and discussing with other team members." ASSESSMENT ASSESSMENT Assessment 58-year-old female with a known history of diabetes mellitus type 2, hypertension, hypothyroidism, anxiety disorder, bipolar disorder initially presented to the hospital with chest pain palpitation, febrile episodes on and off for last few days, status post mechanical fall five days ago eventually fell onto her face and hold her coccyx as well presented to the hospital with chest pain palpitations found to have 1. Chest pain rule out [place] 2. Flu-like symptoms ruled out COVID-19/influenza A and B 3. Urinary tract infection 4. Leukocytosis 5. Uncontrolled hyperglycemia in the setting of Diabetes mellitus type 2 6. Pseudohyponatremia secondary to hyperglycemia 7. Anxiety/bipolar disorder 8. Chronic marijuana use 9. Noncompliance 10. Chronic back pain with chronic narcotic dependency Date of Service: Jun 08, 2024 Billing Provider: FILOMENA FLOYD MD Common Visit Codes: NOT BILLABLE FILOMENA FLOYD MD Jun 08, 2024 16:03
[2024-06-08 16:36] VITALS: BP 131/82; PULSE 79; RESP 18; TEMP 98.4; O2SAT 97
--- NOTE | 2024-06-09 18:03 | ECG ---
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
== END 2024-06-08 16:50 | disposition home or self-care (01) | DRG 720 ==
LOC: ER 10:06 → TELE 19:57 → TELE-E-ADS 21:12
PROVIDERS: ADMIT Nurse Practitioner Family; ATTEND Nurse Practitioner Family
DX: A41.9 Sepsis, unspecified organism (principal); S32.2XXA Fracture of coccyx, initial encounter for closed fracture; E03.9 Hypothyroidism, unspecified; E11.65 Type 2 diabetes mellitus with hyperglycemia; N39.0 Urinary tract infection, site not specified; E66.01 Morbid (severe) obesity due to excess calories; F11.20 Opioid dependence, uncomplicated; F12.90 Cannabis use, unspecified, uncomplicated; F31.9 Bipolar disorder, unspecified; F41.9 Anxiety disorder, unspecified; G89.29 Other chronic pain; S00.83XA Contusion of other part of head, initial encounter; M53.3 Sacrococcygeal disorders, not elsewhere classified; K59.00 Constipation, unspecified; I10 Essential (primary) hypertension; Z68.39 Body mass index [BMI] 39.0-39.9, adult; Z83.3 Family history of diabetes mellitus; Z79.84 Long term (current) use of oral hypoglycemic drugs; Z91.199 Patient's noncompliance with other medical treatment and regimen due to unspecified reason; W18.39XA Other fall on same level, initial encounter; Y93.89 Activity, other specified; Y92.89 Other specified places as the place of occurrence of the external cause; Y99.8 Other external cause status
CPT/HCPCS: 36415; 70486; 71045; 72192; 72220; 78452; 80048; 80053; 80061; 80307; 81001; 82962; 83036; 83605; 83880; 84443; 84484; 84702; 85007; 85025; 85027; 86803; 87040; 87086; 87340; 87426; 87804; 93005; 93017; 93306; 96365; 96375; G0378; J1815; J1885; J2405

== ENCOUNTER 2024-08-14 08:40 | Emergency (ER) | payer MEDICAID ==
[~2024-08-14] VITALS: Ht 175.3 cm; Wt 100.0 kg
[~2024-08-14 08:40] MED LIST changes: -ALPR0.5T; +ASPI-543 PO; +BUDE1AER4 IN; -DIVA-139; +GLIP5TAB21 PO; +IBUP-1455 PO; +LEVO50TA7 PO; +LISI10TA34 PO; -LORA-205; +LORA-622 PO; +MECL-90 PO; -MECL1TAB42 PO; +METF-371 PO; -QUET100T38
[2024-08-14 09:00] VITALS: PULSE 88; RESP 94; O2SAT 95
--- NOTE | 2024-08-14 09:03 | ED.PDOC ---
History of Present Illness HPI Comments 48F BIBA w/ no pror Hx associated to the c/c of ABD pain. Pt reports on having ABD pain associated w/ N/V/D for the past 3 days. EMS state that the pt on scene was 80/40 and was given 500cc of fluids and the BP went up to 137/89, and an accucheck of 393. PMHx of DM, Thyroid, Asthma, Anxiety, and HTN. SHx of Cholecystectomy. Denies chills, fever, SOB, CP or no other associated symptom's, modifiers, recent injuries or sick contacts at this time. Chief Complaint: Abdominal Pain Time Seen by MD: 08:50 Primary Care Provider: JANAE Reviewed Notes: Nurses Notes, Crushed Stone Grader Notes, Medications, Allergies Allergies: Coded Allergies: NO KNOWN ALLERGIES (Unverified , 05/07/10) Home Meds Reported Medications Budesonide-Formoterol Fumarate (Budesonide/Formoterol Fum 160-4.5 Mcg/Act) 1 Aer Aer, 1 AER IN, AER 06/04/24 Lisinopril (Lisinopril) 10 Mg Tab, 10 MG PO DAILY for 30 Days, MG 06/04/24 Loratadine (Claritin) 10 Mg Tab, 10 MG PO, TAB 25 Meclizine Hcl (Meclizine Hcl) 25 Mg Tab, 25 MG PO BIDP for 30 Days, MG 06/04/24 Aspirin (Aspir-Low) 81 Mg Tab, 81 MG PO DAILY for 30 Days, MG 06/04/24 Ibuprofen Micronized (Ibuprofen) 800 Mg Tab, 800 MG PO, TAB 06/04/24 Ondansetron Odt 4MG Tab (ZOFRAN PO) 4 Mg Tb, 4 MG PO, TAB ODT TAB-DISSOLVE IN MOUTH, THEN SWALLOW 06/04/24 Glipizide (Glipizide) 5 Mg Tab, 5 MG PO for 30 Days, MG 06/04/24 Levothyroxine Sodium (Levothyroxine Sodium) 50 Mcg Tab, 50 MCG PO QAM for 30 Days, MCG /07/28 Metformin Hydrochloride (Metformin Hcl) 850 Mg Tab, 850 MG PO BID, TAB 06/04/24 Information Source: Patient, Emergency Med Personnel Mode of Arrival: EMS Severity: Moderate Timing: Days Duration: Since onset, Days Prehospital treatment: None Past Medical History PAST MEDICAL HISTORY: Anxiety, Asthma, DM, HTN, Thyroid Surgical History: Cholecystectomy 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: No Pertinent 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 Family History Family History: Reviewed,noncontributory to illness, Unknown Social History Smoker: Non-Smoker Alcohol: Denies ETOH Use Drugs: Denies Drug Use Lives In: Home Constitutional: denies: chills, diaphoresis, fatigue, fever, malaise, sweats, weakness, others EENTM: denies: blurred vision, double vision, ear bleeding, ear discharge, ear drainage, ear pain, ear ringing, eye pain, eye redness, hearing loss, mouth pain, mouth swelling, nasal discharge, nose bleeding, nose congestion, nose pain, photophobia, tearing, throat pain, throat swelling, voice changes, others Respiratory: denies: cough, hemoptysis, orthopnea, SOB at rest, shortness of breath, SOB with excertion, stridor, wheezing, others Cardiovascular: denies: chest pain, dizzy spells, diaphoresis, Dyspnea on exertion, edema, irregular heart beat, left arm pain, lightheadedness, palpitations, PND, syncope, others Gastrointestinal: reports: abdominal pain, diarrhea, nausea, vomiting; denies: abdomen distended, blood streaked bowels, constipated, dysphagia, difficulty swallowing, hematemesis, melena, poor appetite, poor fluid intake, rectal bleeding, rectal pain, others Genitourinary: denies: abnormal vagina bleeding, burning, dyspareunia, dysuria, flank pain, frequency, hematuria, incontinence, pain, , vagina discharge, urgency, others Neurological: denies: dizziness, fainting, headache, left sided numbness, left sided weakness, numbness, paresthesia, pre-existing deficit, right sided numbness, right sided weakness, seizure, speech problems, tingling, tremors, weakness, others Musculoskeletal: denies: back pain, gout, joint pain, joint swelling, muscle pain, muscle stiffness, neck pain, others Integumetry: denies: bruises, change in color, change in hair/nails, dryness, laceration, lesions, lumps, rash, wounds, others Allergic/Immunocompromised: denies: Difficulty Healing, Frequent Infections, Hives, Itching, others Hematologic/Lymphatic: denies: anemia, blood clots, easy bleeding, easy bruising, swollen glands, others Endocrine: denies: excessive hunger, excessive sweating, excessive thirst, excessive urination, flushing, intolerance to cold, intolerance to heat, unexplained weight gain, unexplained weight loss, others Psychiatric: denies: anxiety, bipolar disorder, depression, hopeless, panic disorder, schizophrenia, sleepless, suicidal, others All Other Systems: Reviewed and Negative Physical Exam Exam Comments Appears Dehydrated Dry Mucus membrane General Appearance: No Apparent Distress, Normal HEENT: Normal ENT Inspection, Pharynx Normal, TMs Normal Neck: Full Range of Motion, Non-Tender, Normal, Normal Inspection Respiratory: Chest Non-Tender, Lungs Clear, No Accessory Muscle Use, No Respiratory Distress, Normal Breath Sounds Cardiovascular: No Edema, No JVD, No Murmur, No Gallop, Normal Peripheral Pulses, Regular Rate/Rhythm Breast Exam: Deferred Gastrointestinal: No Organomegaly, Non Tender, No Pulsatile Mass, Normal Bowel Sounds, Soft Genitalia: Deferred Pelvic: Deferred Rectal: Deferred Extremities: No calf tenderness, Normal capillary refill, Normal inspection, Normal range of motion, Non-tender, No pedal edema Musculoskeletal : Apperance: Normal Neurologic: Alert, multifocal lens assembler II-XII nml as Tested, No Motor Deficits, Normal Affect, Normal Mood, No Sensory Deficits Cerebellar Function: Normal Reflexes: Normal Skin: Dry, Normal Color, Warm Lymphatic: No Adenopathy Was a procedure done? Was a procedure done?: No Differential Dx Considerations may include: Gastroenteritis, cystitis, viral X-Ray, Labs, Meds, VS Vital Signs Date Time Temp Pulse Resp B/P (MAP) Pulse Ox O2 Delivery O2 Flow Rate FiO2 08/14/24 12:00 97.9 99 16 147/78 (101) 97 97.9 08/14/24 12:00 88 08/14/24 10:00 87 16 159/92 (114) 97 08/14/24 09:05 98.6 95 16 138/89 (105) 96 08/14/24 09:00 88 94 95 Room Air* 0 21 08/14/24 09:00 97.8 75 20 164/86 (112) 97 97.8 Lab Test 08/14/24 10:21 08/14/24 09:08 08/14/24 08:59 Range/Units Urine Color Light-yellow Yellow Urine Clarity Clear Clear Urine pH 5.0 5.0-9.0 Urine Specific [place] 1.028 1.001-1.035 Urine Protein Negative Negative Urine Ketones 4+ H Negative Urine Blood Negative Negative /uL Urine Nitrite Negative Negative Urine Bilirubin Negative Negative Urine Urobilinogen Normal Negative mg/dL Urine Leukocyte Esterase Negative Negative /uL Urine RBC 1 0 - 4 /hpf Urine Microscopic WBC 1 0-5 /HPF Urine Squamous Epithelial Cells Few <5 /hpf Urine Bacteria None seen None Seen /hpf Urine Glucose 4+ H Normal mg/dL White Blood Count 18.6 H 4.4-10.8 10^3/uL Red Blood Count 5.12 4.0-5.20 10^6/uL Hemoglobin 15.3 12.2-16.2 g/dL Hematocrit 44.9 36.0-46.0 % Mean Corpuscular Volume 87.7 80.0-100.0 fL Mean Corpuscular Hemoglobin 29.9 28.0-32.0 pg Mean Corpuscular Hemoglobin Concent 34.0 32.0-36.0 g/dL Red Cell Distribution Width 13.5 11.8-14.3 % Platelet Count 328 140-450 10^3/uL Mean Platelet Volume 7.8 6.9-10.8 fL Neutrophils (%) (Auto) 77.2 37.0-80.0 % Lymphocytes (%) (Auto) 12.5 10.0-50.0 % Monocytes (%) (Auto) 5.6 0.0-12.0 % Eosinophils (%) (Auto) 4.2 0.0-7.0 % Basophils (%) (Auto) 0.5 0.0-2.0 % Neutrophils # (Auto) 14.4 H 1.6-8.6 10 ^3/uL Lymphocytes # (Auto) 2.3 0.4-5.4 10 ^3/uL Monocytes # (Auto) 1.0 0-1.3 10 ^3/uL Eosinophils # (Auto) 0.8 0-0.8 10 ^3/uL Basophils # (Auto) 0.1 0-0.2 10 ^3/uL Nucleated Red Blood Cells 0.0 % Sodium Level 130 L 136-145 mmol/L Potassium Level 4.0 3.5-5.1 mmol/L Chloride Level 95 L 98-107 mmol/L Carbon Dioxide Level 20 20-31 mmol/L Anion Gap 15 5-15 Blood Urea Nitrogen 19 9-23 mg/dL Creatinine 0.90 0.550-1.02 mg/dL Glomerular Filtration Rate Calc 79 >90 mL/min BUN/Creatinine Ratio 21.1 H 10.0-20.0 Serum Glucose 380 H 74-106 mg/dL Calcium Level 9.6 8.7-10.4 mg/dL POC Glucose 344 H 70-106 mg/dl Current Medications Medications (Trade) Dose Ordered Sig/Lavonne Route Start Time Stop Time Status Last Admin Sodium Chloride 1,000 ml @ 1,000 mls/hr Q1H ONCE IV 08/14/24 09:00 08/14/24 09:59 DC 08/14/24 09:44 Famotidine (Pepcid Injection) 20 mg ONCE ONCE IV 08/14/24 09:00 08/14/24 09:01 DC 08/14/24 09:49 Ketorolac Tromethamine (Toradol Injection) 15 mg ONCE ONCE IV 08/14/24 09:00 08/14/24 09:01 DC 08/14/24 09:44 Ondansetron HCl (Zofran) 4 mg ONCE ONCE IV 08/14/24 09:00 08/14/24 09:01 DC 08/14/24 09:44 Sodium Chloride 1,000 ml @ 1,000 mls/hr Q1H ONCE IV 08/14/24 12:30 08/14/24 13:29 DC 08/14/24 12:30 Time of 1ST Reevaluation: 09:20 Reevaluation 1ST: Unchanged Patient Education/Counseling: Diagnosis, Treatment, Prognosis Family Education/Counseling: No Family Present Departure 1 Departure Time of Disposition: 15:13 (Patient with elevated white count likely secondary to vomiting. Patient is feeling significantly better tolerating p.o. and like to go home.) Impression: Primary Impression: Viral gastroenteritis Disposition: 01 HOME / SELF CARE / HOMELESS Condition: Stable Additional Instructions: You likely have gastroenteritis. It is important to stay well hydrated and well rested. This usually resolves within 1 week. If your symptoms worsen or you have any other concerns please return to the ER. Discharged With: Self Critical Care Note Critical Care Time?: No Stability Stability form required: No I personally scribed for ANUJ HOWELL MD ([email or web address]) on 08/14/24 at 09:03. Electronically submitted by En Page ([email or web address]). ANUJ HOWELL MD Aug 14, 2024 09:03
[2024-08-14 09:28] LABS: Anion Gap 15 (5-15); Calcium 9.6 mg/dL (8.7-10.4); Carbon Dioxide 20 mmol/L (20-31)
[2024-08-14 09:33] LABS: BUN/Creatinine Ratio 21.1 (10.0-20.0); Blood Urea Nitrogen 19 mg/dL (9-23)
[2024-08-14 09:35] LABS: Basophils # (auto) 0.1 10 ^3/uL (0-0.2); Basophils % (auto) 0.5 % (0.0-2.0); Eosinophils # (auto) 0.8 10 ^3/uL (0-0.8); Eosinophils % (auto) 4.2 % (0.0-7.0); Hematocrit 44.9 % (36.0-46.0); Hemoglobin 15.3 g/dL (12.2-16.2); Lymphocytes # (auto) 2.3 10 ^3/uL (0.4-5.4); Lymphocytes % (auto) 12.5 % (10.0-50.0); Mean Corpuscular Hemoglobin 29.9 pg (28.0-32.0); Mean Corpuscular Volume 87.7 fL (80.0-100.0); Monocytes % (auto) 5.6 % (0.0-12.0); Neutrophils # (auto) 14.4 10 ^3/uL (1.6-8.6); Neutrophils % (auto) 77.2 % (37.0-80.0); Platelet Count (auto) 328 10^3/uL (140-450); Red Blood Cells 5.12 10^6/uL (4.0-5.20); Red Cell Distribution Width 13.5 % (11.8-14.3); White Blood Cell 18.6 10^3/uL (4.4-10.8)
[2024-08-14] MEDS: SODIUM CHLORIDE 0.9% 1,000 ML IV ONE ×2 (09:44→12:30)
[2024-08-14] MEDS: ONDANSETRON HCL 4 MG/2 ML VIAL IV ONE (09:44)
[2024-08-14] MEDS: KETOROLAC TROMETH 30 MG/ML 1ML VIAL IV ONE (09:44)
[2024-08-14 09:47] LABS: Chloride 95 mmol/L (98-107); Glucose 380 mg/dL (74-106); Sodium 130 mmol/L (136-145)
[2024-08-14] MEDS: FAMOTIDINE (10MG/ML) 2ML VL IV ONE (09:49)
[2024-08-14 11:25] LABS: Urine Bacteria None Seen /hpf (None Seen)
[2024-08-14 11:42] LABS: Urine Blood Negative /uL (Negative); Urine Clarity Clear (Clear); Urine Color Light-Yellow (Yellow); Urine Protein, UAD Negative (Negative); Urine Specific Gravity 1.028 (1.001-1.035); Urine Squamous Epithelial Cell FEW /hpf (<5); Urine Urobilinogen Normal (Negative); Urine WBC 1 /HPF (0-5)
[2024-08-14 15:37] VITALS: BP 148/77; PULSE 89; RESP 16; TEMP 97.9; O2SAT 97
== END 2024-08-14 15:37 | disposition home or self-care (01) ==
LOC: EDBD 08:40 → ER 08:40
DX: A08.4 Viral intestinal infection, unspecified (principal); I10 Essential (primary) hypertension; E11.9 Type 2 diabetes mellitus without complications; J45.909 Unspecified asthma, uncomplicated; F41.9 Anxiety disorder, unspecified; Z79.82 Long term (current) use of aspirin; Z79.84 Long term (current) use of oral hypoglycemic drugs; Z79.899 Other long term (current) drug therapy; Z90.49 Acquired absence of other specified parts of digestive tract
CPT/HCPCS: 36415; 80048; 81001; 82947; 85025; 96361; 96374; 96375; 99285; J1885; J2405; J3490; J7030; 82962

== ENCOUNTER 2024-11-09 08:18 | Emergency (ER) | payer MEDICAID ==
[~2024-11-09] VITALS: Ht 167.6 cm; Wt 112.5 kg
[2024-11-09 09:25] LABS: Basophils # (auto) 0 10 ^3/uL (0-0.2); Basophils % (auto) 0.2 % (0.0-2.0); Eosinophils # (auto) 0.8 10 ^3/uL (0-0.8); Eosinophils % (auto) 4.9 % (0.0-7.0); Hematocrit 44.6 % (36.0-46.0); Hemoglobin 15.3 g/dL (12.2-16.2); Lymphocytes # (auto) 3.4 10 ^3/uL (0.4-5.4); Lymphocytes % (auto) 21.2 % (10.0-50.0); Mean Corpuscular Hemoglobin 30.2 pg (28.0-32.0); Mean Corpuscular Hgb Conc. 34.3 g/dL (32.0-36.0); Mean Corpuscular Volume 87.9 fL (80.0-100.0); Monocytes # (auto) 0.9 10 ^3/uL (0-1.3); Monocytes % (auto) 5.4 % (0.0-12.0); Neutrophils % (auto) 68.3 % (37.0-80.0); Nucleated Red Blood Cells % 0.1 %; Platelet Count (auto) 315 10^3/uL (140-450); Red Blood Cells 5.08 10^6/uL (4.0-5.20); Red Cell Distribution Width 13.5 % (11.8-14.3)
[2024-11-09 09:34] LABS: Chloride 103 mmol/L (98-107); Potassium 4.1 mmol/L (3.5-5.1); Sodium 136 mmol/L (136-145)
[2024-11-09 09:35] LABS: Anion Gap 12 (5-15); Carbon Dioxide 21 mmol/L (20-31)
[2024-11-09 09:36] LABS: Calcium 9.8 mg/dL (8.7-10.4)
[2024-11-09 09:40] LABS: BUN/Creatinine Ratio 14.8 (10.0-20.0); Blood Urea Nitrogen 12 mg/dL (9-23)
[2024-11-09 09:42] LABS: Glucose 330 mg/dL (74-106)
[2024-11-09] MEDS: cefTRIAXone SOD 1,000 MG VL IM ONE (10:19)
[2024-11-09] MEDS: HYDROcodone-ACET 7.5/325MG TAB PO ONE (10:19)
[2024-11-09] MEDS: LIDOCAINE 1% HCL (LOCAL ANESTH.) INJ 20ML MDV ID ONE (10:19)
--- NOTE | 2024-11-09 10:36 | ED.PDOC ---
History of Present Illness(SKN HPI Comments A 49-year-old female with a past medical history of hypertension, thyroid disease, diabetes, anxiety, asthma, presents to the emergency department with a chief complaint of abscess on LT buttock onset 2 weeks. Patient began experiencing small abscess on LT buttock about 2 weeks ago, tried at home remedies, took 3 days of antibiotics that were previously prescribed for toothache. For the past 2 days patient noticed abscess is larger, pain has increased, patient has not been able to have a bowel movement due to pain, is not able to sit or walk due to pain and discomfort. No other symptoms or modifying factors present at this time. Denies fevers chills nausea vomiting Denies abdominal pain Denies unintentional weight loss Denies blood in the stool Denies dizziness, headache, blurry vision Chief Complaint: Rectal Pain Time Seen by MD: 09:50 Primary Care Provider: ? History of Present Illness: Nurses Notes, Medications, Allergies Allergies: Coded Allergies: NO KNOWN ALLERGIES (Unverified , 05/07/10) Home Meds Active Scripts Doxycycline Hyclate (DOXYCYCLINE HYCLATE) 100 Mg Tab, 1 TAB PO BID for 7 Days, #14 TAB 0 Refills Prov:NASIR DAMON [employer] [facility] 11/09/24 Reported Medications Budesonide-Formoterol Fumarate (Budesonide/Formoterol Fum 160-4.5 Mcg/Act) 1 Aer Aer, 1 AER IN, AER 06/04/24 Lisinopril (Lisinopril) 10 Mg Tab, 10 MG PO DAILY for 30 Days, MG 25 Loratadine (Claritin) 10 Mg Tab, 10 MG PO, TAB 25 Meclizine Hcl (Meclizine Hcl) 25 Mg Tab, 25 MG PO BIDP for 30 Days, MG 25 Aspirin (Aspir-Low) 81 Mg Tab, 81 MG PO DAILY for 30 Days, MG 06/04/24 Ibuprofen Micronized (Ibuprofen) 800 Mg Tab, 800 MG PO, TAB /25 Ondansetron Odt 4MG Tab (ZOFRAN PO) 4 Mg Tb, 4 MG PO, TAB ODT TAB-DISSOLVE IN MOUTH, THEN SWALLOW 06/04/24 Glipizide (Glipizide) 5 Mg Tab, 5 MG PO for 30 Days, MG /25 Levothyroxine Sodium (Levothyroxine Sodium) 50 Mcg Tab, 50 MCG PO QAM for 30 Days, MCG 06/04/24 Metformin Hydrochloride (Metformin Hcl) 850 Mg Tab, 850 MG PO BID, TAB 06/04/24 Information Source: Patient Mode of Arrival: Ambulatory Severity: Moderate Timing: Weeks Duration: Since onset Prehospital treatment: Treatment, Other (at home remedies) Location: Buttock (LT) Associated Signs and Symptoms: Redness, Swelling Past Medical History PAST MEDICAL HISTORY: Anxiety, Asthma, DM, HTN, Thyroid Surgical History: Cholecystectomy 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 MOLDER 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 Family History Family History: Reviewed,noncontributory to illness, Unknown Social History Smoker: Non-Smoker Alcohol: Denies ETOH Use Drugs: Denies Drug Use Lives In: Home All Other Systems: Reviewed and Negative (as per HPI) Physical Exam General Appearance: No Apparent Distress, Normal HEENT: Normal ENT Inspection, Pharynx Normal, TMs Normal Neck: Full Range of Motion, Non-Tender, Normal, Normal Inspection Respiratory: Chest Non-Tender, Lungs Clear, No Accessory Muscle Use, No Respiratory Distress, Normal Breath Sounds Cardiovascular: No Edema, No JVD, No Murmur, No Gallop, Normal Peripheral Pulses, Regular Rate/Rhythm Breast Exam: Deferred Gastrointestinal: No Organomegaly, Non Tender, No Pulsatile Mass, Normal Bowel Sounds, Soft Genitalia: Deferred Pelvic: Deferred Rectal: Other (LT buttock with 2 cm above rectum, abscess 2 x 3 cm erythematous, fluctuance, TTP, with no surrounding crepatous palpated ) Extremities: No calf tenderness, Normal capillary refill, Normal inspection, Normal range of motion, Non-tender, No pedal edema Musculoskeletal : Apperance: Normal Neurologic: Alert, distance learning program coordinator II-XII nml as Tested, No Motor Deficits, Normal Affect, Normal Mood, No Sensory Deficits Cerebellar Function: Normal Reflexes: Normal Skin: Dry, Normal Color, Warm Lymphatic: No Adenopathy Was a procedure done? Was a procedure done?: Yes Sedation Sedation?: No Incision and Drainage Incision and Drainage: Abscess Location LT Buttock Anesthetic: Lidocaine Preparation: Betadine, Saline, Wound area cleaner Incision and Wound: Pus, Seroma, Amount (3 in), Irrigated, Packed Informed consent obtained: Yes Risks/benefits/alt described: Yes Differential Diagnosis (INTG) Differential Diagnosis: Other X-Ray, Labs, Meds, VS Vital Signs Date Time Temp Pulse Resp B/P (MAP) Pulse Ox O2 Delivery O2 Flow Rate FiO2 11/09/24 11:30 98.2 78 17 143/64 (90) 99 98.2 11/09/24 11:30 68 18 98 Room Air 11/09/24 08:32 98.1 107 18 160/100 (120) 96 98.1 Lab Test 11/09/24 09:11 Range/Units White Blood Count 16.0 H 4.4-10.8 10^3/uL Red Blood Count 5.08 4.0-5.20 10^6/uL Hemoglobin 15.3 12.2-16.2 g/dL Hematocrit 44.6 36.0-46.0 % Mean Corpuscular Volume 87.9 80.0-100.0 fL Mean Corpuscular Hemoglobin 30.2 28.0-32.0 pg Mean Corpuscular Hemoglobin Concent 34.3 32.0-36.0 g/dL Red Cell Distribution Width 13.5 11.8-14.3 % Platelet Count 315 140-450 10^3/uL Mean Platelet Volume 7.7 6.9-10.8 fL Neutrophils (%) (Auto) 68.3 37.0-80.0 % Lymphocytes (%) (Auto) 21.2 10.0-50.0 % Monocytes (%) (Auto) 5.4 0.0-12.0 % Eosinophils (%) (Auto) 4.9 0.0-7.0 % Basophils (%) (Auto) 0.2 0.0-2.0 % Neutrophils # (Auto) 11.0 H 1.6-8.6 10 ^3/uL Lymphocytes # (Auto) 3.4 0.4-5.4 10 ^3/uL Monocytes # (Auto) 0.9 0-1.3 10 ^3/uL Eosinophils # (Auto) 0.8 0-0.8 10 ^3/uL Basophils # (Auto) 0 0-0.2 10 ^3/uL Nucleated Red Blood Cells 0.1 % Sodium Level 136 136-145 mmol/L Potassium Level 4.1 3.5-5.1 mmol/L Chloride Level 103 98-107 mmol/L Carbon Dioxide Level 21 20-31 mmol/L Anion Gap 12 5-15 Blood Urea Nitrogen 12 9-23 mg/dL Creatinine 0.81 0.550-1.02 mg/dL Glomerular Filtration Rate Calc 89 >90 mL/min BUN/Creatinine Ratio 14.8 10.0-20.0 Serum Glucose 330 H 74-106 mg/dL Calcium Level 9.8 8.7-10.4 mg/dL Current Medications Medications (Trade) Dose Ordered Sig/Lavonne Route Start Time Stop Time Status Last Admin Lidocaine HCl (Xylocaine 1%) 4 ml ONCE ONCE ID 11/09/24 10:15 11/09/24 10:43 DC 11/09/24 10:19 Ceftriaxone Sodium (Rocephin) 1,000 mg ONCE ONCE IM 11/09/24 10:15 11/09/24 10:43 DC 11/09/24 10:19 Acetaminophen/ Hydrocodone Bitart ([place] 7.5/325MG Tab) 1 tab ONCE ONCE PO 11/09/24 10:15 11/09/24 10:43 DC 11/09/24 10:19 X-Ray, Labs, Meds, VS Comment A 49-year-old female with a past medical history of hypertension, thyroid disease, diabetes, anxiety, asthma, presents to the emergency department with a chief complaint of abscess on LT buttock onset 2 weeks. Patient arrives alert and oriented, ABC's intact, afebrile, vital signs stable, saturating well in room air labs were ordered. CBC was ordered to exclude anemia, blood loss, or infection. BMP was ordered to exclude electrolyte abnormalities, renal failure, dehydration, hyperglycemia Patient was given: Hydrocodone 7.5/325 mg PO, Ceftriaxone 1000 mg IM. Tolerated medications with no adverse reaction. This patient presents with signs and symptoms consistent with a cutaneous abscess. The abscess is localized without any evidence of deep soft tissue infection based on physical examination. The patient required incision and drainage. Differential diagnosis considered but not limited to: abscess, folliculitis, cellulitis. I also considered deep space infection, necrotizing fasciitis, sepsi s, however, this is less likely as the patient does not have rapid expanding erythema or pain out of proportion to suggest necrotizing fasciitis. There is no evidence of sepsis on both a review of their vitals and clinical exam. Procedure Note: Verbal informed consent was obtained from the patient. I discussed the indications, benefits, alternatives and complications to performing an incision and drainage. The patient understands the risks include, but are not limited to scarring, underlying structure injury, bleeding, nerve injury, new infection, and resultant disability. The skin overlying the abscess was prepared with chlor ahexidine. The skin surrounding the abscess was locally anesthetized using 1% Lidocaine with out EPI An incision using a number 11 blade scalpel was made overlying the abscess. The incision was 1 cm long. Loculations were bluntly dissected using a hemostat. Careful exploration of the abscess cavity demonstrated no foreign body. The abscess cavity was packed with sterile packing. The wound was then dressed with sterile gauze. The wound was hemostatic at the conclusion of the procedure. The patient did not appear to suffer any complications as a result of the procedure. The patient was given DOXYCYCLINE 100 mg BID x 10 days and will f/u with PMD 3-5 days or return to the ER sooner if it worsens. Additional MDM Review of External, Non-ED records: External records reviewed. Discussion with independent historian (EMS, family) history obtained from the patient/parents (if applicable) at bedside Chronic conditions affecting care: DM, HTN, Thyroid, asthma, anxiety Social determinants of health affecting care: None Consideration of admission (observation or admission): I considered escalation of care to admission for this patient, however given the reassuring workup, the patient is safe for outpatient management. Time of 1ST Reevaluation: 10:20 Reevaluation 1ST: Improved Patient Education/Counseling: Diagnosis, Treatment, Prognosis Family Education/Counseling: No Family Present Departure 1 Departure Time of Disposition: 11:20 Impression: Primary Impression: Gluteal abscess Disposition: 01 HOME / SELF CARE / HOMELESS Condition: Fair e-Prescriptions Doxycycline Hyclate (DOXYCYCLINE HYCLATE) 100 Mg Tab 1 TAB PO BID for 7 Days, #14 TAB 0 Refills Prov: NASIR DAMON NP 11/09/24 Critical Care Note Critical Care Time?: No Stability Stability form required: No Heart Score Heart Score: Heart Score Response (Comments) Value History N/A 0 EKG N/A 0 Age N/A 0 Risk Factors N/A 0 Troponin N/A 0 Total 0 I personally scribed for NASIR DAMON NP ([email or web address]) on 11/09/24 at 10:36. Electronically submitted by Darlin Beckford ([email or web address]). I personally scribed for NASIR DAMON NP ([email or web address]) on 11/09/24 at 11:14. Electronically submitted by Darlin Beckford ([email or web address]). I personally scribed for NASIR DAMON NP ([email or web address]) on 11/09/24 at 11:16. Electronically submitted by Darlin Beckford ([email or web address]). NASIR DAMON NP Nov 09, 2024 10:36
[2024-11-09] MEDS ORDERED: DOXY-286 PO (11:20)
[2024-11-09 11:30] VITALS: BP 143/64; PULSE 68; RESP 18; TEMP 98.2; O2SAT 98
== END 2024-11-09 11:33 | disposition home or self-care (01) ==
LOC: ER 08:18
DX: L02.31 Cutaneous abscess of buttock (principal); F41.9 Anxiety disorder, unspecified; J45.909 Unspecified asthma, uncomplicated; E11.9 Type 2 diabetes mellitus without complications; I10 Essential (primary) hypertension; Z90.49 Acquired absence of other specified parts of digestive tract; Z79.899 Other long term (current) drug therapy
CPT/HCPCS: 10060; 36415; 80048; 85025; 96372; 99283; J0696; J2003

== ENCOUNTER 2024-11-10 21:37 | Inpatient (IN) | payer MEDICAID ==
[~2024-11-10] VITALS: Ht 167.6 cm; Wt 113.7 kg
[~2024-11-10 21:37] MED LIST changes: +DOXY-286 PO
[2024-11-11] VITALS (9 sets, daily range): BP systolic 115–135; BP diastolic 73–74; PULSE 72–99; RESP 16–20; TEMP 97.7–98.9; O2SAT 93–98
[2024-11-11] MEDS: LIDOCAINE W/ EPINEPHRINE 1% 20ML VIAL ID ONE (03:11)
--- NOTE | 2024-11-11 03:25 | ED.PDOC ---
Foreign Body HPI Comments 49 year old female with a Hx of HTN and DM presents to the ED for the c/c of an Abscess. pt states that she has had a gluteal abscess for the past week. Pt notes that she was seen yesterday for the same c/c and her gluteal abscess was drained and packaged. Pts package is noted to be falling off. Blood tinged drainage noted. No other associated symptoms, modifiers, recent injuries or sick contacts present at this time. Chief Complaint: Abscess Time Seen by MD: 03:17 Primary Care Provider: ? History of Present Illness: Nurses Notes, Medications, Allergies Allergies: Coded Allergies: NO KNOWN ALLERGIES (Unverified , 05/07/10) Home Meds Active Scripts Doxycycline Hyclate (DOXYCYCLINE HYCLATE) 100 Mg Tab, 1 TAB PO BID for 7 Days, #14 TAB 0 Refills Prov:NASIR DAMON [employer] 11/09/24 Reported Medications Budesonide-Formoterol Fumarate (Budesonide/Formoterol Fum 160-4.5 Mcg/Act) 1 Aer Aer, 1 AER IN, AER 06/04/24 Lisinopril (Lisinopril) 10 Mg Tab, 10 MG PO DAILY for 30 Days, MG 06/04/24 Loratadine (Claritin) 10 Mg Tab, 10 MG PO, TAB 06/04/24 Meclizine Hcl (Meclizine Hcl) 25 Mg Tab, 25 MG PO BIDP for 30 Days, MG 06/04/24 Aspirin (Aspir-Low) 81 Mg Tab, 81 MG PO DAILY for 30 Days, MG 06/04/24 Ibuprofen Micronized (Ibuprofen) 800 Mg Tab, 800 MG PO, TAB 06/04/24 Ondansetron Odt 4MG Tab (ZOFRAN PO) 4 Mg Tb, 4 MG PO, TAB ODT TAB-DISSOLVE IN MOUTH, THEN SWALLOW 06/04/24 Glipizide (Glipizide) 5 Mg Tab, 5 MG PO for 30 Days, MG 06/04/24 Levothyroxine Sodium (Levothyroxine Sodium) 50 Mcg Tab, 50 MCG PO QAM for 30 Days, MCG 06/04/24 Metformin Hydrochloride (Metformin Hcl) 850 Mg Tab, 850 MG PO BID, TAB 06/04/24 Information Source: Patient Mode of Arrival: Ambulatory Timing: Days Duration: Since onset, Days Severity: Moderate Ability to handle secretions: Normal Prehospital treatment: None Location: Left, Other (gluteal region) Context: Accidental Foreign Body: Unknown Removal: Unknown Associated signs and symptoms: Pain, Discharge, Bleeding Vital Signs Vital Signs Date Time Temp Pulse Resp B/P (MAP) Pulse Ox O2 Delivery O2 Flow Rate FiO2 11/11/24 09:42 94 187/104 11/11/24 08:21 98.0 20 95 98.0 11/11/24 07:49 Room Air* 0 21 Physical Exam General: Awake, alert and oriented. mild acute distress. Obese Skin: Skin in warm, dry and intact. Appropriate color for ethnicity. HEENT: The head is normocephalic and atraumatic. Conjunctivae are clear without exudates or hemorrhage. Sclera is non-icteric. EOM are intact. No signs of nystagmus. Eyelids are normal in appearance without swelling or lesions. Oral mucosa is pink and moist Neck: The neck is supple with normal range of motion. No JVD. Cardiac: Heart rate and rhythm are normal. No murmurs, gallops, or rubs are auscultated. Respiratory: No signs of respiratory distress. Lung sounds are clear in all lobes bilaterally without rales, rhonchi, or wheezes. Abdominal: Abdomen is soft, non-tender without distention, guarding or rigidity. Bowel sounds are present and normoactive in all four quadrants. Extremities: Upper and lower extremities are atraumatic in appearance without deformity or edema. Left Gluteal abscess, with blood tinged drainage noted. Pain upon palpitation, minimal drainage Neurological: The patient is awake, alert and oriented to person, place, and time with normal speech. Speech is clear. There is no facial asymmetry. Psychiatric: Appropriate mood and affect. Good judgement and insight. Review of Systems: REVIEW OF SYSTEMS: No fever, no chills, or fatigue HEENT: No sore throat, no earache, no congestion, no neck pain. Cardiac: No chest pain. No palpitations. Lungs: No shortness of breath, no cough. GI: No nausea, no vomiting, no diarrhea, no constipation, no abdominal pain : No dysuria, frequency, or urgency. No hematuria. Musculoskeletal: No joint pain , no joint swelling, no extremity edema. 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 Was a procedure done?: Yes Sedation Sedation?: No Informed consent obtained: Yes Other Procedure Procedure Packing Indication Infected Abscess Prep Saline Informed consent obtained: Yes Risks, benefits, and alternati: Yes FB Differential Dx Differential Diagnosis: Abrasion, Foreign Body, Laceration, Perforation, Other X-Ray, Labs, Meds, VS Vital Signs Date Time Temp Pulse Resp B/P (MAP) Pulse Ox O2 Delivery O2 Flow Rate FiO2 11/11/24 09:42 94 187/104 11/11/24 09:42 187/104 11/11/24 08:21 98.0 94 20 158/95 (116) 95 98.0 11/11/24 07:49 99 20 98 Room Air* 0 21 11/11/24 06:34 107 19 98 Room Air 11/11/24 06:34 97.8 107 19 141/101 (114) 98 97.8 11/10/24 22:14 98.6 135 18 139/93 (108) 96 98.6 Lab Test 11/11/24 09:30 11/11/24 07:51 11/11/24 07:48 11/11/24 06:13 Range/Units POC Glucose 368 H 491 *H 494 *H 70-106 mg/dl Lactic Acid Level 1.8 0.4-2.0 mmol/L Test 11/11/24 03:00 Range/Units White Blood Count 11.4 #H 4.4-10.8 10^3/uL Red Blood Count 5.37 H 4.0-5.20 10^6/uL Hemoglobin 16.4 H 12.2-16.2 g/dL Hematocrit 48.0 H 36.0-46.0 % Mean Corpuscular Volume 89.5 80.0-100.0 fL Mean Corpuscular Hemoglobin 30.5 28.0-32.0 pg Mean Corpuscular Hemoglobin Concent 34.1 32.0-36.0 g/dL Red Cell Distribution Width 13.3 11.8-14.3 % Platelet Count 286 140-450 10^3/uL Mean Platelet Volume 7.8 6.9-10.8 fL Neutrophils (%) (Auto) 63.1 37.0-80.0 % Lymphocytes (%) (Auto) 23.0 10.0-50.0 % Monocytes (%) (Auto) 9.4 0.0-12.0 % Eosinophils (%) (Auto) 3.6 0.0-7.0 % Basophils (%) (Auto) 0.9 0.0-2.0 % Neutrophils # (Auto) 7.2 1.6-8.6 10 ^3/uL Lymphocytes # (Auto) 2.6 0.4-5.4 10 ^3/uL Monocytes # (Auto) 1.1 0-1.3 10 ^3/uL Eosinophils # (Auto) 0.4 0-0.8 10 ^3/uL Basophils # (Auto) 0.1 0-0.2 10 ^3/uL Nucleated Red Blood Cells 0.0 % Sodium Level 133 L 136-145 mmol/L Potassium Level 3.9 3.5-5.1 mmol/L Chloride Level 100 98-107 mmol/L Carbon Dioxide Level 22 20-31 mmol/L Anion Gap 11 5-15 Blood Urea Nitrogen 17 9-23 mg/dL Creatinine 0.98 0.550-1.02 mg/dL Glomerular Filtration Rate Calc 71 >90 mL/min BUN/Creatinine Ratio 17.3 10.0-20.0 Serum Glucose 502 *H 74-106 mg/dL Calcium Level 9.8 8.7-10.4 mg/dL Thyroid Stimulating Hormone (TSH) 10.35 H 0.55-4.78 uIU/mL Current Medications Medications (Trade) Dose Ordered Sig/Lavonne Route Start Time Stop Time Status Last Admin Sodium Chloride 1,000 ml @ 1,000 mls/hr Q1H ONCE IV 11/11/24 05:15 11/11/24 06:14 DC 11/11/24 06:33 Sodium Chloride 1,000 ml @ 1,000 mls/hr Q1H ONCE IV 11/11/24 05:15 11/11/24 06:14 DC 11/11/24 07:38 Insulin Human Regular (InsuLIN R) 5 units ONCE ONCE IV 11/11/24 05:15 11/11/24 05:16 DC 11/11/24 06:33 Clindamycin Phosphate 50 ml @ 50 mls/hr ONCE ONCE IV 11/11/24 05:15 11/11/24 06:14 DC 11/11/24 07:38 Potassium Chloride (Klor-Con Tablet) 20 meq ONCE ONCE PO 11/11/24 07:45 11/11/24 07:46 DC 11/11/24 07:38 Acetaminophen/ Hydrocodone Bitart ([place] 10/325MG Tab) 1 tab ONCE ONCE PO 11/11/24 07:45 11/11/24 07:46 DC 11/11/24 07:38 Insulin Human Regular (InsuLIN R) 10 units ONCE ONCE IV 11/11/24 08:00 11/11/24 08:01 DC 11/11/24 07:55 Sodium Chloride 1,000 ml @ 60 mls/hr [id number] IV 11/11/24 09:15 11/11/24 09:15 Acetaminophen/ Hydrocodone Bitart ([place] 5/325MG Tab) 1 tab Q4HP PRN PO 11/11/24 09:15 11/11/24 17:48 Time of 1ST Reevaluation: 03:48 Reevaluation 1ST: Unchanged Patient Education/Counseling: Need For Follow Up Family Education/Counseling: No Family Present Departure 1 Departure Time of Disposition: 05:05 Impression: Primary Impression: Cellulitis Additional Impression: Hyperglycemia Disposition: ADMITTED INPATIENT Condition: Stable Comments 49-year-old female with gluteal abscess status post I and D and packing. Patient presents to the emergency department with increasing pain, she has not taken any antibiotics since the I and D, dressing change. Wound was irrigated, packing changed. Patient's blood sugars are elevated. Antibiotics initiated in the ED. Patient admitted to hospitalist service for further treatment, evaluation and monitoring. Critical Care Note Critical Care Time?: No Stability Stability form required: No Heart Score Heart Score: Heart Score Response (Comments) Value History N/A 0 EKG N/A 0 Age N/A 0 Risk Factors N/A 0 Troponin N/A 0 Total 0 I personally scribed for LOLIS DICK MD ([email or web address]) on 11/11/24 at 03:25. Electronically submitted by Tera Nova ([email or web address]). LOLIS DICK MD Nov 11, 2024 03:25
[2024-11-11 03:29] LABS: Basophils # (auto) 0.1 10 ^3/uL (0-0.2); Basophils % (auto) 0.9 % (0.0-2.0); Eosinophils # (auto) 0.4 10 ^3/uL (0-0.8); Eosinophils % (auto) 3.6 % (0.0-7.0); Hemoglobin 16.4 g/dL (12.2-16.2); Lymphocytes # (auto) 2.6 10 ^3/uL (0.4-5.4); Mean Corpuscular Hemoglobin 30.5 pg (28.0-32.0); Mean Corpuscular Hgb Conc. 34.1 g/dL (32.0-36.0); Mean Corpuscular Volume 89.5 fL (80.0-100.0); Monocytes # (auto) 1.1 10 ^3/uL (0-1.3); Monocytes % (auto) 9.4 % (0.0-12.0); Neutrophils # (auto) 7.2 10 ^3/uL (1.6-8.6); Neutrophils % (auto) 63.1 % (37.0-80.0); Platelet Count (auto) 286 10^3/uL (140-450); Red Blood Cells 5.37 10^6/uL (4.0-5.20); Red Cell Distribution Width 13.3 % (11.8-14.3); White Blood Cell 11.4 10^3/uL (4.4-10.8)
[2024-11-11 03:52] LABS: Anion Gap 11 (5-15); Carbon Dioxide 22 mmol/L (20-31); Chloride 100 mmol/L (98-107); Potassium 3.9 mmol/L (3.5-5.1)
[2024-11-11 03:53] LABS: Calcium 9.8 mg/dL (8.7-10.4)
[2024-11-11 03:55] LABS: Sodium 133 mmol/L (136-145)
[2024-11-11 03:58] LABS: BUN/Creatinine Ratio 17.3 (10.0-20.0); Blood Urea Nitrogen 17 mg/dL (9-23)
[2024-11-11 03:59] LABS: Glucose 502 mg/dL (74-106)
[2024-11-11] MEDS ORDERED: POTASSIUM CHL 20MEQ/100ML 100 ML IV ONE (05:15)
[2024-11-11] MEDS: InsuLIN REG 1unit/0.01ml Soln (100units/ml) IV ONE ×2 (06:33→07:55)
[2024-11-11] MEDS: SODIUM CHLORIDE 0.9% 1,000 ML IV ONE ×2 (06:33→07:38)
[2024-11-11] MEDS: POTASSIUM CHL 20 Meq TABLET PO ONE (07:38)
[2024-11-11] MEDS: CLINDAMYCIN 600MG IV 50 ML IV ONE (07:38)
[2024-11-11] MEDS: HYDROcodone-ACET 10/325MG TAB PO ONE (07:38)
[2024-11-11] MEDS ORDERED: DEXTROSE (50%) 50ML SYRG IV PRN (09:15)
[2024-11-11] MEDS ORDERED: ONDANSETRON HCL 4 MG/2 ML VIAL IV PRN (09:15)
[2024-11-11] MEDS ORDERED: DOCUSATE SOD 100 MG CAP PO PRN (09:15)
[2024-11-11] MEDS: SODIUM CHLORIDE 0.9% 1,000 ML IV SCH (09:15)
[2024-11-11] MEDS ORDERED: ACETAMINOPHEN 325 MG TAB PO PRN (09:15)
[2024-11-11] MEDS ORDERED: ALBUTEROL SULF 2.5 MG/0.5ML(0.5%) NEB SOLN NEB PRN (09:15)
[2024-11-11] MEDS: ASCORBIC ACID 500 MG TAB PO SCH (09:38)
[2024-11-11] MEDS: ASPirin 81 mg TAB PO SCH (09:38)
[2024-11-11] MEDS: ZINC SULFATE 220mg CAP or TAB PO SCH (09:38)
[2024-11-11] MEDS: LISINOPRIL 5 MG TAB PO SCH (09:42)
[2024-11-11] MEDS: METOPROLOL TARTRATE 25 MG TAB PO SCH (09:42)
--- NOTE | 2024-11-11 09:56 | DVHHP2 ---
History of Present Illness Reason for Visit: Gluteal abscess History of Present Illness The patient is a 49-year-old female with past medical history of asthma, anxiety, diabetes mellitus, thyroid disease, and hypertension who presented to [facility] [place] for evaluation of gluteal abscess. Patient reports she has been experiencing gluteal abscess for the past 1 week, seen yesterday with same complaint and was drained and packed, but is falling off with possible infection. Patient was seen and evaluated in the ED, laboratory data shows WBC 11.4, platelets 286, hemoglobin 16.4, hematocrit 48.0, sodium 133, potassium 3.9, BUN 17, creatinine 0.98, glucose 502, calcium 9.8, lactic acid 1.8, blood pressure 158/95, heart rate 94, temperature 98.0 F, O2 saturation 98% on room air. Patient was started on IV antibiotic regimen clindamycin, please see medication orders section in the computer. On my assessment, patient denied chest pain, no headache, no dizziness, no diaphoresis, no shortness of breath, no nausea, no vomiting, no fever, no chills. Patient was admitted for further evaluation and medical management. Past Medical History Anxiety, Asthma, DM, HTN, Thyroid Past Surgical History Cholecystectomy Family History Reviewed, noncontributory to the management of this case. Past Social History The patient lives at home, denies smoking, alcohol or illicit drugs abuse. Review of Systems Constitutional: No: Fever, Chills, Sweats, Weakness, Malaise, Other Eyes: No: Pain, Vision change, Conjunctivae inflammation, Eyelid inflammation, Other, Redness ENT: No: Ear pain, Ear discharge, Nose pain, Nose discharge, Nose congestion, Mouth pain, Mouth swelling, Throat pain, Throat swelling, Other Respiratory: No: Cough, Dry, Shortness of breath, SOB with excertion, Wheezing, Hemoptysis, Pleuritic Pain, Sputum, Wheezing, Other Cardiovascular: No: Chest Pain, Palpitations, Orthopnea, Paroxysmal Noc. Dyspnea, Edema, Lt Headedness, Other Gastrointestinal: No: Nausea, Vomiting, Abdominal Pain, Diarrhea, Constipation, Melena, Hematochezia, Other Genitourinary: No Dysuria, No Frequency, No Incontinence, No Hematuria, No Retention; Other (Gluteal abscess) Musculoskeletal: No: other, neck pain, shoulder pain, arm pain, back pain, hand pain, leg pain, foot pain Skin: Other (Cellulitis); No: Rash, Lesions, Jaundice, Bruising Neurological: No: Weakness, Numbness, Incoordination, Change in speech, Conf usion, Seizures, Other Allergies: Coded Allergies: NO KNOWN ALLERGIES (Unverified , 05/07/10) Medications Current Medications Medications Dose Ordered Sig/Lavonne Route Start Time Stop Time Status Last Admin Dose Admin Clindamycin Phosphate 50 ml @ 50 mls/hr Q8HR IV 11/11/24 14:00 Albuterol 2.5 mg Q4HPRN PRN NEB 11/11/24 09:15 Lisinopril 10 mg DAILY PO 11/11/24 10:00 11/11/24 09:42 10 MG Metoprolol Tartrate 25 mg BID PO 11/11/24 10:00 11/11/24 09:42 25 MG Diagnostic Test (Pha) 1 strip IQ4HR 11/11/24 12:00 Insulin Human Regular IQ4HR SC 11/11/24 12:00 Dextrose 50 ml UD PRN IV 11/11/24 09:15 Sodium Chloride 1,000 ml @ 60 mls/hr [id number] IV 11/11/24 09:15 Acetaminophen/ Hydrocodone Bitart 1 tab Q4HP PRN PO 11/11/24 09:15 Ondansetron HCl 4 mg Q4HP PRN IV 11/11/24 09:15 Docusate Sodium 100 mg BIDPRN PRN PO 11/11/24 09:15 Zinc Sulfate 220 mg DAILY PO 11/11/24 10:00 11/11/24 09:38 220 MG Ascorbic Acid 500 mg BID PO 11/11/24 10:00 11/11/24 09:38 500 MG Acetaminophen 650 mg Q6HP PRN PO 11/11/24 09:15 Aspirin 81 mg DAILY PO 11/11/24 10:00 11/11/24 09:38 81 MG Levothyroxine Sodium 50 mcg QAM@0600 PO 11/12/24 06:00 Exam Vital Signs Vital Signs Date Time Temp Pulse Resp B/P (MAP) Pulse Ox O2 Delivery O2 Flow Rate FiO2 11/11/24 09:42 94 187/104 11/11/24 08:21 98.0 20 95 98.0 11/11/24 07:49 Room Air* 0 21 General Appearance: Alert, Oriented X3, Cooperative, No acute distress HEENT: Atraumatic, PERRLA, EOMI, Mucous membr. moist/pink Respiratory: Clear to auscultation, Normal air movement Cardiovascular: Regular rate, Normal S1, Normal S2, No murmurs Abdominal: Normal bowel sounds, Soft, No tenderness, No hepatospenomegaly, No masses Extremities: No clubbing, No cyanosis, No edema, Normal pulses, No tenderness/swelling Skin: No rashes Neuro: Normal gait, Normal speech, Strength at 5/5 X4 ext, Normal tone, Sensation intact, Cranial nerves 3-12 NL, Reflexes 2+ Psych/Mental Status: Mental status NL, Mood NL Labs/Xrays Labs Test 11/11/24 09:30 11/11/24 07:51 11/11/24 03:00 Range/Units POC Glucose 368 H 70-106 mg/dl Lactic Acid Level 1.8 0.4-2.0 mmol/L White Blood Count 11.4 #H 4.4-10.8 10^3/uL Red Blood Count 5.37 H 4.0-5.20 10^6/uL Hemoglobin 16.4 H 12.2-16.2 g/dL Hematocrit 48.0 H 36.0-46.0 % Mean Corpuscular Volume 89.5 80.0-100.0 fL Mean Corpuscular Hemoglobin 30.5 28.0-32.0 pg Mean Corpuscular Hemoglobin Concent 34.1 32.0-36.0 g/dL Red Cell Distribution Width 13.3 11.8-14.3 % Platelet Count 286 140-450 10^3/uL Mean Platelet Volume 7.8 6.9-10.8 fL Neutrophils (%) (Auto) 63.1 37.0-80.0 % Lymphocytes (%) (Auto) 23.0 10.0-50.0 % Monocytes (%) (Auto) 9.4 0.0-12.0 % Eosinophils (%) (Auto) 3.6 0.0-7.0 % Basophils (%) (Auto) 0.9 0.0-2.0 % Neutrophils # (Auto) 7.2 1.6-8.6 10 ^3/uL Lymphocytes # (Auto) 2.6 0.4-5.4 10 ^3/uL Monocytes # (Auto) 1.1 0-1.3 10 ^3/uL Eosinophils # (Auto) 0.4 0-0.8 10 ^3/uL Basophils # (Auto) 0.1 0-0.2 10 ^3/uL Nucleated Red Blood Cells 0.0 % Sodium Level 133 L 136-145 mmol/L Potassium Level 3.9 3.5-5.1 mmol/L Chloride Level 100 98-107 mmol/L Carbon Dioxide Level 22 20-31 mmol/L Anion Gap 11 5-15 Blood Urea Nitrogen 17 9-23 mg/dL Creatinine 0.98 0.550-1.02 mg/dL Glomerular Filtration Rate Calc 71 >90 mL/min BUN/Creatinine Ratio 17.3 10.0-20.0 Serum Glucose 502 *H 74-106 mg/dL Calcium Level 9.8 8.7-10.4 mg/dL Assessment/Plan Assessment/Plan Gluteal abscess Leukocytosis, unspecified Diabetes mellitus with hyperglycemia Plan 1. Admit to med surge unit 2. Breathing treatment 3. Pain control management 4. IV antibiotic management 5. Management of fluids and electrolytes 6. Consultation for hospitalist 7. Diagnostic test chest x-ray 8. DVT prophylaxis on SCDs 9. Repeat labs CBC, CMP in a.m. 10. Home medication reviewed and reconciled 11. Continue with current medical management 12. Treatment plan discussed with patient and RN. Patient verbalized understanding. Plan discussed with: Patient, Other (RN) My Orders Orders - CANDIE KIMBLE DNP Procedure Category Date Status Time Consistent DIET 11/11/24 Transmitted Carb(Ccho)Diabetes Breakfast Clindamycin 600mg Iv PHA 11/11/24 In Process (Cleocin Iv) 14:00 Albuterol Medneb PHA 11/11/24 In Process (Ventolin Medneb) 09:15 Lisinopril Tablet PHA 11/11/24 In Process (Zestril Tablet) 10:00 Metoprolol Tartrate PHA 11/11/24 In Process Tablet (Lopressor Ta 10:00 Glucose Blood PHA 11/11/24 In Process (Accu-Chek Comfort 12:00 Insulin R (Human) PHA 11/11/24 In Process (Insulin R) 12:00 Dextrose 50% Syringe PHA 11/11/24 In Process 09:15 Allergies TRAM 11/11/24 In Process 09:10 Code Status CODE 11/11/24 Transmitted 09:10 Sodium Chloride 0.9% PHA 11/11/24 In Process 09:15 Oxygen Per Hour RT 11/11/24 Transmitted 09:10 Hydrocodone-Acet PHA 11/11/24 In Process 5/325mg Tab ([place] 09:15 Ondansetron Hcl PHA 11/11/24 In Process (Zofran) 09:15 Docusate Sodium PHA 11/11/24 In Process Capsule (Colace 09:15 Zinc Sulfate PHA 11/11/24 In Process 10:00 Ascorbic Acid Tablet PHA 11/11/24 In Process (Vitamin C Tablet) 10:00 Complete Blood Count LAB 11/12/24 Verified 04:00 Comprehensive LAB 11/12/24 Verified Metabolic Panel 04:00 Condition: Serious TRAM 11/11/24 In Process 09:10 Acetaminophen Tablet PHA 11/11/24 In Process (Tylenol Tablet) 09:15 Bedrest With Bathroom TRAM 11/11/24 In Process Privileg 09:10 Sequential TRAM 11/11/24 In Process Compression Device Aspirin Tablet PHA 11/11/24 In Process 10:00 Thyroid Stimulating LAB 11/11/24 In Process Hormone 09:10 Levothyroxine Tablet PHA 11/12/24 In Process (Synthroid Tablet) 06:00 Admit ADMIT 11/11/24 Verified 09:54 Nitroglycerin PHA 11/11/24 Verified Sublingual (Ntrostat 10:00 Morphine Sulfate PHA 11/11/24 Verified Injection 10:00 Notify Md Of Changes TRAM 11/11/24 Verified From Base 09:54 Emergency Dysrhythmia TRAM 11/11/24 Verified Protocol 09:54 Oxygen By Nasal RT 11/11/24 Verified Cannula 09:54 Problem List: (1) Gluteal abscess (2) Leukocytosis, unspecified (3) Diabetes mellitus with hyperglycemia Date of Service: Nov 11, 2024 Billing Provider: CANDIE KIMBLE DNP Common Visit Codes: [id number]-[id number] INP/OBS CARE (MOD) CANDIE KIMBLE DNP Nov 11, 2024 09:55
[2024-11-11] MEDS ORDERED: NITROGLYCERIN 0.4 MG SL TAB SL PRN (10:00)
[2024-11-11] MEDS ORDERED: MORPHINE SULFATE INJ 2 MG/ml SYRG IV PRN (10:00)
[2024-11-11] MEDS: ACCU-CHEK COMFORT CURVE STRIP VI SCH (12:01)
[2024-11-11] MEDS: InsuLIN REG 1unit/0.01ml Soln (100units/ml) SC SCH (12:18)
[2024-11-11] MEDS: CLINDAMYCIN 600MG IV 50 ML IV SCH (13:48)
[2024-11-11] MEDS: HYDROcodone-ACET 5/325MG TAB PO PRN (17:48)
[2024-11-12] VITALS (10 sets, daily range): BP systolic 102–178; BP diastolic 68–96; PULSE 67–92; RESP 16–19; TEMP 95.1–98.3; O2SAT 93–97
[2024-11-12] MEDS: LEVOTHYROXINE SODIUM 50 MCG TAB PO SCH (05:45)
[2024-11-12 06:55] LABS: Alanine Aminotransferase 28 U/L (7-40); Albumin 3.8 g/dL (3.2-4.8); Anion Gap 10 (5-15); Aspartate Aminotransferase 24 U/L (13-40); BUN/Creatinine Ratio 24.2 (10.0-20.0); Blood Urea Nitrogen 16 mg/dL (9-23); Carbon Dioxide 22 mmol/L (20-31); Potassium 4.3 mmol/L (3.5-5.1); Sodium 140 mmol/L (136-145); Total Protein 6.1 g/dL (5.7-8.2)
[2024-11-12 06:56] LABS: Bilirubin, Total 0.3 mg/dL (0.2-1.0)
[2024-11-12 06:58] LABS: Calcium 8.6 mg/dL (8.7-10.4); Chloride 108 mmol/L (98-107); Glucose 300 mg/dL (74-106)
[2024-11-12 06:59] LABS: Basophils # (auto) 0 10 ^3/uL (0-0.2); Basophils % (auto) 0.3 % (0.0-2.0); Eosinophils # (auto) 0.6 10 ^3/uL (0-0.8); Eosinophils % (auto) 6.8 % (0.0-7.0); Hematocrit 42.7 % (36.0-46.0); Hemoglobin 14.6 g/dL (12.2-16.2); Lymphocytes # (auto) 2.7 10 ^3/uL (0.4-5.4); Mean Corpuscular Hemoglobin 30.5 pg (28.0-32.0); Mean Corpuscular Hgb Conc. 34.3 g/dL (32.0-36.0); Mean Corpuscular Volume 88.9 fL (80.0-100.0); Monocytes # (auto) 0.7 10 ^3/uL (0-1.3); Monocytes % (auto) 7.7 % (0.0-12.0); Neutrophils % (auto) 55.2 % (37.0-80.0); Nucleated Red Blood Cells % 0.1 %; Platelet Count (auto) 189 10^3/uL (140-450); White Blood Cell 9.1 10^3/uL (4.4-10.8)
[2024-11-12 07:41] LABS: Alkaline Phosphatase 71 U/L (46-116)
--- NOTE | 2024-11-12 13:11 | DVHPN2 ---
Subjective She was in ER and had I&D and a packing for the abscess 2 days ago then she had to come back because the packing fell off Her blood sugar is uncontrolled Changes from previous H/P or p: Changes Eyes: No Pain, No Vision change, No Conjunctivae inflammation, No Eyelid inflammation, No Other, No Redness ENT: No Ear pain, No Ear discharge, No Nose pain, No Nose discharge, No Nose congestion, No Mouth pain, No Mouth swelling, No Throat pain, No Throat swelling, No Other Cardiovascular: No Chest Pain, No Palpitations, No Orthopnea, No Paroxysmal Noc. Dyspnea, No Edema, No Lt Headedness, No Other Respiratory: No Cough, No Dry, No Shortness of breath, No SOB with excertion, No Wheezing, No Hemoptysis, No Pleuritic Pain, No Sputum, No Other Gastrointestinal: No Nausea, No Vomiting, No Abdominal Pain, No Diarrhea, No Constipation, No Melena, No Hematochezia, No Other Genitourinary: No Dysuria, No Frequency, No Incontinence, No Hematuria, No Retention; Other (Gluteal abscess) Musculoskeletal: No other, No neck pain, No shoulder pain, No arm pain, No back pain, No hand pain, No leg pain, No foot pain Skin: No Rash, No Lesions, No Jaundice, No Bruising; Other (Cellulitis) Objective Vitals Vital Signs Date Time Temp Pulse Resp B/P (MAP) Pulse Ox O2 Delivery O2 Flow Rate FiO2 11/12/24 09:38 87 128/78 11/12/24 09:00 96.8 18 97 96.8 11/12/24 08:00 Room Air* 0 21 Intake/Output Intake and Output 11/12/24 07:00 Intake Total 1470 ml Balance 1470 ml Intake Oral 1420 ml IV Total 50 ml # Voids 5 General Appearance: Alert, Oriented X3, Cooperative, No acute distress Lungs: Clear to auscultation, Normal air movement Cardiovascular: Regular rate, Normal S1, Normal S2 Abdomen: Normal bowel sounds, Soft, No tenderness Extremities: No edema Medications Current Medications Medications Dose Ordered Sig/Lavonne Route Start Time Stop Time Status Last Admin Dose Admin Clindamycin Phosphate 50 ml @ 50 mls/hr Q8HR IV 11/11/24 14:00 11/12/24 05:45 50 MLS/HR Albuterol 2.5 mg Q4HPRN PRN NEB 11/11/24 09:15 Lisinopril 10 mg DAILY PO 11/11/24 10:00 11/12/24 09:37 10 MG Metoprolol Tartrate 25 mg BID PO 11/11/24 10:00 11/12/24 09:38 25 MG Diagnostic Test (Pha) 1 strip IQ4HR 11/11/24 12:00 11/12/24 11:30 1 STRIP Insulin Human Regular IQ4HR SC 11/11/24 12:00 11/12/24 11:30 12 UNITS Dextrose 50 ml UD PRN IV 11/11/24 09:15 Sodium Chloride 1,000 ml @ 60 mls/hr [id number] IV 11/11/24 09:15 11/11/24 09:15 60 MLS/HR Acetaminophen/ Hydrocodone Bitart 1 tab Q4HP PRN PO 11/11/24 09:15 11/12/24 11:30 1 TAB Ondansetron HCl 4 mg Q4HP PRN IV 11/11/24 09:15 Docusate Sodium 100 mg BIDPRN PRN PO 11/11/24 09:15 Zinc Sulfate 220 mg DAILY PO 11/11/24 10:00 11/12/24 09:38 220 MG Ascorbic Acid 500 mg BID PO 11/11/24 10:00 11/12/24 09:37 500 MG Acetaminophen 650 mg Q6HP PRN PO 11/11/24 09:15 Aspirin 81 mg DAILY PO 11/11/24 10:00 11/12/24 09:38 81 MG Levothyroxine Sodium 50 mcg QAM@0600 PO 11/12/24 06:00 11/12/24 05:45 50 MCG Nitroglycerin 0.4 mg Q5MINP PRN SL 11/11/24 10:00 Morphine Sulfate 2 mg Q30M PRN IV 11/11/24 10:00 Laboratory Results Laboratory Tests 11/12/24 06:05 Chemistry Test 11/12/24 06:05 Albumin 3.8 g/dL (3.2-4.8) Calcium Level 8.6 mg/dL (8.7-10.4) L Total Protein 6.1 g/dL (5.7-8.2) LFT Test 11/12/24 06:05 Alanine Aminotransferase (ALT) 28 U/L (7-40) Alkaline Phosphatase 71 U/L (46-116) Aspartate Amino Transferase (AST) 24 U/L (13-40) Total Bilirubin 0.3 mg/dL (0.2-1.0) Microbiology Microbiology Date/Time Source Procedure Growth Status 11/11/24 03:05 Blood Blood Culture - Preliminary NO GROWTH AFTER 24 HOURS OF INCUBATION. Resulted Assessment/Plan Assessment/Plan Gluteal abscess status post I&D and packing Uncontrolled type 2 diabetes Morbid obesity Hypertension Hypothyroidism Plan Continue IV clindamycin Dressing change and packing daily Start Lantus Accu-Cheks Resume the home medications Monitor closely Full code Advance directives discussed for 20 minutes Plan discussed with: Patient My Orders Orders - BHANU STONE MD Procedure Category Date Status Time Fluconazole Tablet PHA 11/12/24 Logged (Diflucan Tablet) 13:15 Glucose Blood PHA 11/12/24 Verified (Accu-Chek Comfort 17:00 Bedtime Insulin Scale PHA 11/12/24 Verified 22:00 Moderate Insulin Ss PHA 11/12/24 Verified 17:00 Dextrose 50% Syringe PHA 11/12/24 Verified 13:15 Insulin Lantus PHA 11/12/24 Verified (Glargine) (Lantus) 13:15 Insulin Lantus PHA 11/12/24 Verified (Glargine) (Lantus) 22:00 Date of Service: Nov 12, 2024 Billing Provider: BHANU STONE MD Common Visit Codes: [id number] INP/OBS CARE(HIGH) Secondary Visit Codes: [id number] CARE PLAN 30 MINUTES BHANU STONE MD Nov 12, 2024 13:11
[2024-11-12] MEDS ORDERED: DEXTROSE (50%) 50ML SYRG IV PRN (13:15)
[2024-11-12] MEDS: INSULIN LANTUS (GLARGINE) 1 /0.01ml (100units/ml) SC ONE (14:08)
[2024-11-12] MEDS: FLUCONAZOLE 100 MG TAB PO ONE (14:16)
[2024-11-12] MEDS ORDERED: hydrALAZINE HCL 20 MG/ML VL IV PRN (14:45)
[2024-11-12] MEDS: InsuLIN REG 1unit/0.01ml Soln (100units/ml) SC SCH ×2 (16:35→20:44)
[2024-11-12] MEDS: ACCU-CHEK COMFORT CURVE STRIP VI SCH (16:35)
[2024-11-12] MEDS: INSULIN LANTUS (GLARGINE) 1 /0.01ml (100units/ml) SC SCH (20:45)
[2024-11-13] VITALS (8 sets, daily range): BP systolic 110–148; BP diastolic 63–87; PULSE 61–92; RESP 17–20; TEMP 97.9–98.7; O2SAT 93–98
[2024-11-13] MEDS: INSULIN LANTUS (GLARGINE) 1 /0.01ml (100units/ml) SC ONE (11:35)
--- NOTE | 2024-11-13 16:43 | DVHPN2 ---
Subjective BG is still high Changes from previous H/P or p: Changes Eyes: No Pain, No Vision change, No Conjunctivae inflammation, No Eyelid inflammation, No Other, No Redness ENT: No Ear pain, No Ear discharge, No Nose pain, No Nose discharge, No Nose congestion, No Mouth pain, No Mouth swelling, No Throat pain, No Throat swelling, No Other Cardiovascular: No Chest Pain, No Palpitations, No Orthopnea, No Paroxysmal Noc. Dyspnea, No Edema, No Lt Headedness, No Other Respiratory: No Cough, No Dry, No Shortness of breath, No SOB with excertion, No Wheezing, No Hemoptysis, No Pleuritic Pain, No Sputum, No Other Gastrointestinal: No Nausea, No Vomiting, No Abdominal Pain, No Diarrhea, No Constipation, No Melena, No Hematochezia, No Other Genitourinary: No Dysuria, No Frequency, No Incontinence, No Hematuria, No Retention; Other (Gluteal abscess) Musculoskeletal: No other, No neck pain, No shoulder pain, No arm pain, No back pain, No hand pain, No leg pain, No foot pain Skin: No Rash, No Lesions, No Jaundice, No Bruising; Other (Cellulitis) Objective Vitals Vital Signs Date Time Temp Pulse Resp B/P (MAP) Pulse Ox O2 Delivery O2 Flow Rate FiO2 11/13/24 13:00 98.3 67 19 148/81 (103) 96 98.3 11/13/24 07:42 Room Air* 0 21 Intake/Output Intake and Output 11/13/24 07:00 Intake Total 1258 ml Output Total 2100 ml Balance -842 ml Intake Oral 1258 ml Output Urine Total 2100 ml # Voids 3 General Appearance: Alert, Oriented X3, Cooperative, No acute distress Lungs: Clear to auscultation, Normal air movement Cardiovascular: Regular rate, Normal S1, Normal S2 Abdomen: Normal bowel sounds, Soft, No tenderness Extremities: No edema Medications Current Medications Medications Dose Ordered Sig/Lavonne Route Start Time Stop Time Status Last Admin Dose Admin Clindamycin Phosphate 50 ml @ 50 mls/hr Q8HR IV 11/11/24 14:00 11/13/24 13:35 50 MLS/HR Lisinopril 10 mg DAILY PO 11/11/24 10:00 11/13/24 09:34 10 MG Metoprolol Tartrate 25 mg BID PO 11/11/24 10:00 11/13/24 09:35 25 MG Acetaminophen/ Hydrocodone Bitart 1 tab Q4HP PRN PO 11/11/24 09:15 11/13/24 08:50 1 TAB Ondansetron HCl 4 mg Q4HP PRN IV 11/11/24 09:15 Docusate Sodium 100 mg BIDPRN PRN PO 11/11/24 09:15 Zinc Sulfate 220 mg DAILY PO 11/11/24 10:00 11/13/24 09:35 220 MG Ascorbic Acid 500 mg BID PO 11/11/24 10:00 11/13/24 09:35 500 MG Acetaminophen 650 mg Q6HP PRN PO 11/11/24 09:15 Aspirin 81 mg DAILY PO 11/11/24 10:00 11/13/24 09:35 81 MG Levothyroxine Sodium 50 mcg QAM@0600 PO 11/12/24 06:00 11/13/24 05:08 50 MCG Nitroglycerin 0.4 mg Q5MINP PRN SL 11/11/24 10:00 Morphine Sulfate 2 mg Q30M PRN IV 11/11/24 10:00 Diagnostic Test (Pha) 1 strip ACHS 11/12/24 17:00 11/13/24 11:34 1 STRIP Insulin Human Regular HS SC 11/12/24 22:00 11/12/24 20:44 8 UNITS Insulin Human Regular AC SC 11/12/24 17:00 11/13/24 11:34 12 UNITS Dextrose 50 ml UD PRN IV 11/12/24 13:15 Hydralazine HCl 10 mg Q4HP PRN IV 11/12/24 14:45 Insulin Glargine 20 units BID@0700,2200 [place] 11/13/24 22:00 Laboratory Results Laboratory Tests 11/12/24 06:05 Microbiology Microbiology Date/Time Source Procedure Growth Status 11/12/24 18:51 Buttock Left Gram Stain - Final Resulted 11/12/24 18:51 Buttock Left Wound Culture - Preliminary Resulted 11/11/24 03:05 Blood Blood Culture - Preliminary NO GROWTH AFTER 48 HOURS OF INCUBATION. Resulted Assessment/Plan Assessment/Plan Gluteal abscess status post I&D and packing Uncontrolled type 2 diabetes Morbid obesity Hypertension Hypothyroidism Plan Continue IV clindamycin Dressing change and packing daily Start Lantus Accu-Cheks Resume the home medications Monitor closely Full code Advance directives discussed for 20 minutes 11/13/24: Increase Lantus Continue IV Cleocin Daily dressing and packing of the wound Plan discussed with: Patient My Orders Orders - BHANU STONE MD Procedure Category Date Status Time * Dietary Consult CONS 11/12/24 Transmitted 18:25 Wound Culture W/ Gs ERNIE 11/12/24 In Process 18:25 Cleanse Wound With TRAM 11/12/24 In Process Wound Clean 13:40 Insulin Lantus PHA 11/13/24 In Process (Glargine) (Lantus) 22:00 Date of Service: Nov 13, 2024 Billing Provider: BHANU STONE MD Common Visit Codes: [id number] INP/OBS CARE(HIGH) BHANU STONE MD Nov 13, 2024 16:43
[2024-11-13] MEDS: INSULIN LANTUS (GLARGINE) 1 /0.01ml (100units/ml) SC SCH (21:41)
[2024-11-14] VITALS (8 sets, daily range): BP systolic 106–146; BP diastolic 41–97; PULSE 59–87; RESP 17–18; TEMP 97.4–98.1; O2SAT 94–96
[2024-11-14] MEDS: INSULIN LANTUS (GLARGINE) 1 /0.01ml (100units/ml) SC ONE (10:57)
--- NOTE | 2024-11-14 15:36 | DVHPN2 ---
Subjective BG is still high Changes from previous H/P or p: Changes Eyes: No Pain, No Vision change, No Conjunctivae inflammation, No Eyelid inflammation, No Other, No Redness ENT: No Ear pain, No Ear discharge, No Nose pain, No Nose discharge, No Nose congestion, No Mouth pain, No Mouth swelling, No Throat pain, No Throat swelling, No Other Cardiovascular: No Chest Pain, No Palpitations, No Orthopnea, No Paroxysmal Noc. Dyspnea, No Edema, No Lt Headedness, No Other Respiratory: No Cough, No Dry, No Shortness of breath, No SOB with excertion, No Wheezing, No Hemoptysis, No Pleuritic Pain, No Sputum, No Other Gastrointestinal: No Nausea, No Vomiting, No Abdominal Pain, No Diarrhea, No Constipation, No Melena, No Hematochezia, No Other Genitourinary: No Dysuria, No Frequency, No Incontinence, No Hematuria, No Retention; Other (Gluteal abscess) Musculoskeletal: No other, No neck pain, No shoulder pain, No arm pain, No back pain, No hand pain, No leg pain, No foot pain Skin: No Rash, No Lesions, No Jaundice, No Bruising; Other (Cellulitis) Objective Vitals Vital Signs Date Time Temp Pulse Resp B/P (MAP) Pulse Ox O2 Delivery O2 Flow Rate FiO2 11/14/24 13:00 97.7 59 17 126/74 (91) 96 97.7 11/14/24 07:35 Room Air* 0 21 Intake/Output Intake and Output 11/14/24 07:00 Intake Total 1600 ml Balance 1600 ml Intake Oral 1550 ml IV Total 50 ml # Voids 18 # Bowel Movements 2 General Appearance: Alert, Oriented X3, Cooperative, No acute distress Lungs: Clear to auscultation, Normal air movement Cardiovascular: Regular rate, Normal S1, Normal S2 Abdomen: Normal bowel sounds, Soft, No tenderness Extremities: No edema Medications Current Medications Medications Dose Ordered Sig/Lavonne Route Start Time Stop Time Status Last Admin Dose Admin Clindamycin Phosphate 50 ml @ 50 mls/hr Q8HR IV 11/11/24 14:00 11/14/24 13:45 50 MLS/HR Lisinopril 10 mg DAILY PO 11/11/24 10:00 11/14/24 09:32 10 MG Metoprolol Tartrate 25 mg BID PO 11/11/24 10:00 11/14/24 09:31 25 MG Acetaminophen/ Hydrocodone Bitart 1 tab Q4HP PRN PO 11/11/24 09:15 11/14/24 08:59 1 TAB Ondansetron HCl 4 mg Q4HP PRN IV 11/11/24 09:15 Docusate Sodium 100 mg BIDPRN PRN PO 11/11/24 09:15 Zinc Sulfate 220 mg DAILY PO 11/11/24 10:00 11/14/24 09:32 220 MG Ascorbic Acid 500 mg BID PO 11/11/24 10:00 11/14/24 09:31 500 MG Acetaminophen 650 mg Q6HP PRN PO 11/11/24 09:15 Aspirin 81 mg DAILY PO 11/11/24 10:00 11/14/24 09:32 81 MG Levothyroxine Sodium 50 mcg QAM@0600 PO 11/12/24 06:00 11/14/24 05:49 50 MCG Nitroglycerin 0.4 mg Q5MINP PRN SL 11/11/24 10:00 Morphine Sulfate 2 mg Q30M PRN IV 11/11/24 10:00 Diagnostic Test (Pha) 1 strip ACHS 11/12/24 17:00 11/14/24 11:00 1 STRIP Insulin Human Regular HS SC 11/12/24 22:00 11/13/24 21:41 10 UNITS Insulin Human Regular AC SC 11/12/24 17:00 11/14/24 11:01 15 UNITS Dextrose 50 ml UD PRN IV 11/12/24 13:15 Hydralazine HCl 10 mg Q4HP PRN IV 11/12/24 14:45 Insulin Glargine 30 units BID@0700,2200 [place] 11/14/24 22:00 Laboratory Results Laboratory Tests 11/12/24 06:05 Microbiology Microbiology Date/Time Source Procedure Growth Status 11/12/24 18:51 Buttock Left Gram Stain - Final Resulted 11/12/24 18:51 Buttock Left Wound Culture - Preliminary Resulted 11/11/24 03:05 Blood Blood Culture - Preliminary NO GROWTH AFTER 72 HOURS OF INCUBATION. Resulted Assessment/Plan Assessment/Plan Gluteal abscess status post I&D and packing Uncontrolled type 2 diabetes Morbid obesity Hypertension Hypothyroidism Plan Continue IV clindamycin Dressing change and packing daily Start Lantus Accu-Cheks Resume the home medications Monitor closely Full code Advance directives discussed for 20 minutes 11/13/24: Increase Lantus Continue IV Cleocin Daily dressing and packing of the wound 11/14/24: Increase Lantus Continue IV antibiotics Dressing changes Plan discussed with: Patient My Orders Orders - BHANU STONE MD Procedure Category Date Status Time Insulin Lantus PHA 11/14/24 In Process (Glargine) (Lantus) 22:00 Date of Service: Nov 14, 2024 Billing Provider: BHANU STONE MD Common Visit Codes: [id number] INP/OBS CARE(HIGH) BHANU STONE MD Nov 14, 2024 15:36
[2024-11-14] MEDS: INSULIN LANTUS (GLARGINE) 1 /0.01ml (100units/ml) SC SCH (21:38)
[2024-11-15] VITALS (8 sets, daily range): BP systolic 105–136; BP diastolic 58–90; PULSE 62–99; RESP 16–20; TEMP 97.6–98.1; O2SAT 91–96
--- NOTE | 2024-11-15 13:08 | DVHPN2 ---
Subjective BG is still high Changes from previous H/P or p: Changes Eyes: No Pain, No Vision change, No Conjunctivae inflammation, No Eyelid inflammation, No Other, No Redness ENT: No Ear pain, No Ear discharge, No Nose pain, No Nose discharge, No Nose congestion, No Mouth pain, No Mouth swelling, No Throat pain, No Throat swelling, No Other Cardiovascular: No Chest Pain, No Palpitations, No Orthopnea, No Paroxysmal Noc. Dyspnea, No Edema, No Lt Headedness, No Other Respiratory: No Cough, No Dry, No Shortness of breath, No SOB with excertion, No Wheezing, No Hemoptysis, No Pleuritic Pain, No Sputum, No Other Gastrointestinal: No Nausea, No Vomiting, No Abdominal Pain, No Diarrhea, No Constipation, No Melena, No Hematochezia, No Other Genitourinary: No Dysuria, No Frequency, No Incontinence, No Hematuria, No Retention; Other (Gluteal abscess) Musculoskeletal: No other, No neck pain, No shoulder pain, No arm pain, No back pain, No hand pain, No leg pain, No foot pain Skin: No Rash, No Lesions, No Jaundice, No Bruising; Other (Cellulitis) Objective Vitals Vital Signs Date Time Temp Pulse Resp B/P (MAP) Pulse Ox O2 Delivery O2 Flow Rate FiO2 11/15/24 09:09 98.1 99 17 128/90 (103) 96 98.1 11/15/24 07:30 Room Air* 0 21 Intake/Output Intake and Output 11/15/24 07:00 Intake Total 2750 ml Output Total 1000 ml Balance 1750 ml Intake Oral 2600 ml IV Total 150 ml Output Urine Total 1000 ml # Voids 6 # Bowel Movements 1 General Appearance: Alert, Oriented X3, Cooperative, No acute distress Lungs: Clear to auscultation, Normal air movement Cardiovascular: Regular rate, Normal S1, Normal S2 Abdomen: Normal bowel sounds, Soft, No tenderness Extremities: No edema Medications Current Medications Medications Dose Ordered Sig/Lavonne Route Start Time Stop Time Status Last Admin Dose Admin Clindamycin Phosphate 50 ml @ 50 mls/hr Q8HR IV 11/11/24 14:00 11/15/24 05:55 50 MLS/HR Lisinopril 10 mg DAILY PO 11/11/24 10:00 11/15/24 09:04 10 MG Metoprolol Tartrate 25 mg BID PO 11/11/24 10:00 11/15/24 09:03 25 MG Acetaminophen/ Hydrocodone Bitart 1 tab Q4HP PRN PO 11/11/24 09:15 11/15/24 09:05 1 TAB Ondansetron HCl 4 mg Q4HP PRN IV 11/11/24 09:15 Docusate Sodium 100 mg BIDPRN PRN PO 11/11/24 09:15 Zinc Sulfate 220 mg DAILY PO 11/11/24 10:00 11/15/24 09:02 220 MG Ascorbic Acid 500 mg BID PO 11/11/24 10:00 11/15/24 09:02 500 MG Acetaminophen 650 mg Q6HP PRN PO 11/11/24 09:15 Aspirin 81 mg DAILY PO 11/11/24 10:00 11/15/24 09:02 81 MG Levothyroxine Sodium 50 mcg QAM@0600 PO 11/12/24 06:00 11/15/24 06:29 50 MCG Nitroglycerin 0.4 mg Q5MINP PRN SL 11/11/24 10:00 Morphine Sulfate 2 mg Q30M PRN IV 11/11/24 10:00 Diagnostic Test (Pha) 1 strip ACHS 11/12/24 17:00 11/15/24 11:24 1 STRIP Insulin Human Regular HS SC 11/12/24 22:00 11/14/24 21:37 8 UNITS Insulin Human Regular AC SC 11/12/24 17:00 11/15/24 11:50 15 UNITS Dextrose 50 ml UD PRN IV 11/12/24 13:15 Hydralazine HCl 10 mg Q4HP PRN IV 11/12/24 14:45 Insulin Glargine 40 units BID@0700,2200 [place] 11/15/24 22:00 Laboratory Results Laboratory Tests 11/12/24 06:05 Microbiology Microbiology Date/Time Source Procedure Growth Status 11/12/24 18:51 Buttock Left Gram Stain - Final Resulted 11/12/24 18:51 Wound Culture - Preliminary Enterococcus faecalis Presumptive Scarlett albicans Resulted 11/11/24 03:05 Blood Blood Culture - Preliminary NO GROWTH AFTER 72 HOURS OF INCUBATION. Resulted Assessment/Plan Assessment/Plan Gluteal abscess status post I&D and packing Uncontrolled type 2 diabetes Morbid obesity Hypertension Hypothyroidism Plan Continue IV clindamycin Dressing change and packing daily Start Lantus Accu-Cheks Resume the home medications Monitor closely Full code Advance directives discussed for 20 minutes 11/13/24: Increase Lantus Continue IV Cleocin Daily dressing and packing of the wound 11/14/24: Increase Lantus Continue IV antibiotics Dressing changes 11/15/2024: Increase Lantus to 40 units twice a day Continue to change dressing changes daily and packing daily Continue IV antibiotics Plan discussed with: Patient My Orders Orders - BHANU STONE MD Procedure Category Date Status Time Insulin Lantus PHA 11/15/24 In Process (Glargine) (Lantus) 22:00 Date of Service: Nov 15, 2024 Billing Provider: BHANU STONE MD Common Visit Codes: [id number] INP/OBS CARE(HIGH) BHANU STONE MD Nov 15, 2024 13:08
[2024-11-15] MEDS: INSULIN LANTUS (GLARGINE) 1 /0.01ml (100units/ml) SC SCH (21:42)
[2024-11-16 01:00] VITALS: BP 92/56; PULSE 60; RESP 18; TEMP 98.4; O2SAT 93
[2024-11-16 05:00] VITALS: BP 114/86; PULSE 74; RESP 20; TEMP 97.1; O2SAT 97
[2024-11-16 07:30] VITALS: PULSE 82; RESP 17
[2024-11-16 09:07] VITALS: BP 114/66; PULSE 72; RESP 16; TEMP 97.6; O2SAT 97
[2024-11-16 13:02] VITALS: BP 174/91; PULSE 68; RESP 17; TEMP 97.7; O2SAT 96
[2024-11-16 15:00] VITALS: BP 148/86
[2024-11-16] MEDS ORDERED: DOXY1CAP57 PO (15:27)
[2024-11-16] MEDS ORDERED: AUG875T PO (15:27)
--- NOTE | 2024-11-16 18:02 | DVHDS2 ---
Discharge Summary Date of Admission Nov 11, 2024 at 09:54 Date of Discharge: Nov 16, 2024 Labs/Diagnostic Data: Laboratory Results Test 11/16/24 11:03 11/12/24 06:05 11/11/24 07:51 11/11/24 03:00 POC Glucose 328 mg/dl (70-106) White Blood Count 9.1 10^3/uL (4.4-10.8) Red Blood Count 4.80 10^6/uL (4.0-5.20) Hemoglobin 14.6 g/dL (12.2-16.2) Hematocrit 42.7 % (36.0-46.0) Mean Corpuscular Volume 88.9 fL (80.0-100.0) Mean Corpuscular Hemoglobin 30.5 pg (28.0-32.0) Mean Corpuscular Hemoglobin Concent 34.3 g/dL (32.0-36.0) Red Cell Distribution Width 13.0 % (11.8-14.3) Platelet Count 189 10^3/uL (140-450) Mean Platelet Volume 8.7 fL (6.9-10.8) Neutrophils (%) (Auto) 55.2 % (37.0-80.0) Lymphocytes (%) (Auto) 30.0 % (10.0-50.0) Monocytes (%) (Auto) 7.7 % (0.0-12.0) Eosinophils (%) (Auto) 6.8 % (0.0-7.0) Basophils (%) (Auto) 0.3 % (0.0-2.0) Neutrophils # (Auto) 5.0 10 ^3/uL (1.6-8.6) Lymphocytes # (Auto) 2.7 10 ^3/uL (0.4-5.4) Monocytes # (Auto) 0.7 10 ^3/uL (0-1.3) Eosinophils # (Auto) 0.6 10 ^3/uL (0-0.8) Basophils # (Auto) 0 10 ^3/uL (0-0.2) Nucleated Red Blood Cells 0.1 % Sodium Level 140 mmol/L (136-145) Potassium Level 4.3 mmol/L (3.5-5.1) Chloride Level 108 mmol/L (98-107) Carbon Dioxide Level 22 mmol/L (20-31) Anion Gap 10 (5-15) Blood Urea Nitrogen 16 mg/dL (9-23) Creatinine 0.66 mg/dL (0.550-1.02) Glomerular Filtration Rate Calc 107 mL/min (>90) BUN/Creatinine Ratio 24.2 (10.0-20.0) Serum Glucose 300 mg/dL (74-106) Calcium Level 8.6 mg/dL (8.7-10.4) Total Bilirubin 0.3 mg/dL (0.2-1.0) Aspartate Amino Transferase (AST) 24 U/L (13-40) Alanine Aminotransferase (ALT) 28 U/L (7-40) Alkaline Phosphatase 71 U/L (46-116) Total Protein 6.1 g/dL (5.7-8.2) Albumin 3.8 g/dL (3.2-4.8) Lactic Acid Level 1.8 mmol/L (0.4-2.0) Thyroid Stimulating Hormone (TSH) 10.35 uIU/mL (0.55-4.78) Other Laboratory Tests 11/12/24 06:05 Brief Hx & Hospital Course: Final diagnoses: Gluteal abscess status post I&D and packing Uncontrolled type 2 diabetes Morbid obesity Hypertension Hypothyroidism She was given IV antibiotics The wound was packed daily Her DM was not controlled, we started her on insulin BG stayed high, we titrated it up to help control BG DC home on po antibiotics Condition at Discharge: Stable Final Diagnosis/Problems List Gluteal abscess status post I&D and packing Uncontrolled type 2 diabetes Morbid obesity Hypertension Hypothyroidism Discharge Disposition: Home SNF Discharge Will this Physician continue t: No Discharge Instruct/Medications Diet: Consistent carbohydrate Activity: No Restrictions, As Tolerated Follow Up/Referral: PCP SANJUANITA Medications: Augmentin & Doxy x 7 days Discharge Statement: "Patient was advised to return to the ER or call 911 if any headaches, dizziness, shortness of breath, chest pain, abdominal pain, bleeding, fevers, or worsening of medical condition. Patient was counseled about treatment plan, medications, possible side effects, patientverbalized understanding. All questions were answered to the best of my ability. This discharge took greater then 30 minutes in planning, reviewing documentation, counseling the patient, and discussing with other team members." ASSESSMENT ASSESSMENT Assessment Gluteal abscess status post I&D and packing Uncontrolled type 2 diabetes Morbid obesity Hypertension Hypothyroidism Date of Service: Nov 16, 2024 Billing Provider: BHAUN STONE MD Common Visit Codes: [id number] DISCH DAY >30min BHANU STONE MD Nov 16, 2024 18:02
== END 2024-11-16 17:02 | disposition home or self-care (01) | DRG 383 ==
LOC: ER 21:37 → OVERFLOW 11-11 09:54 → WEST WING 11-11 09:55
PROVIDERS: ADMIT Internal Medicine Geriatric Medicine; ATTEND Internal Medicine Geriatric Medicine
DX: L02.31 Cutaneous abscess of buttock (principal); D72.829 Elevated white blood cell count, unspecified; E03.9 Hypothyroidism, unspecified; E11.65 Type 2 diabetes mellitus with hyperglycemia; E66.01 Morbid (severe) obesity due to excess calories; J45.909 Unspecified asthma, uncomplicated; I10 Essential (primary) hypertension; Z68.38 Body mass index [BMI] 38.0-38.9, adult; L03.317 Cellulitis of buttock; F41.9 Anxiety disorder, unspecified; Z90.49 Acquired absence of other specified parts of digestive tract
CPT/HCPCS: 36415; 80048; 80053; 82962; 83605; 84443; 85025; 87040; 87077; 87186; 87205; G0378; J1815; J3490